=== PATIENT | male | born 1935 | race Caucasian/White ===

== ENCOUNTER → 2017-08-18 16:13 | Outpatient (REF) | payer MEDICARE, MEDICAID, SELFPAY ==
[2017-08-18 16:16] LABS: Bacteria Urine None Seen
[2017-08-18 16:27] LABS: Appearance Urine UA CLEAR; Bilirubin Urine UA NEGATIVE (NEGATIVE); Color Urine UA YELLOW; Glucose Urine UA NEGATIVE (Normal); Ketones Urine UA NEGATIVE (NEGATIVE); Leukocyte Esterase Urine UA NEGATIVE (NEGATIVE); Nitrite Urine UA Negative (Negative); Occult Blood Urine UA 2+ (Negative); Protein Urine UA TRACE (Negative); Specific Gravity Urine UA 1.025 (1.000-1.035); Urobilinogen Urine UA 0.2 E.U./dL (0.2)
[2017-08-18 16:33] LABS: RBC Urine 5-10/HPF (0-5/HPF); Squamous Epithelial Cell Urine None Seen; WBC Urine 0-1/HPF (0-5/HPF)
== END ==
LOC: LAB 16:13
PROVIDERS: Visit Provider Internal Medicine
DX: R41.0 Disorientation, unspecified (principal); R35.0 Frequency of micturition
CPT/HCPCS: 81001; 87086

== ENCOUNTER → 2017-11-25 16:19 | Outpatient (REF) | payer MEDICARE, MEDICAID, SELFPAY ==
[2017-11-25 16:22] LABS: Bacteria Urine None Seen; RBC Urine None Seen (0-5/HPF)
[2017-11-25 16:46] LABS: Appearance Urine UA CLEAR; Bilirubin Urine UA NEGATIVE (NEGATIVE); Color Urine UA YELLOW; Glucose Urine UA NEGATIVE (Normal); Ketones Urine UA NEGATIVE (NEGATIVE); Leukocyte Esterase Urine UA NEGATIVE (NEGATIVE); Nitrite Urine UA Negative (Negative); Occult Blood Urine UA TRACE-LYSED (Negative); Protein Urine UA NEGATIVE (Negative); Specific Gravity Urine UA 1.015 (1.000-1.035); Urobilinogen Urine UA 0.2 E.U./dL (0.2)
[2017-11-25 16:47] LABS: WBC Urine 1-5/HPF (0-5/HPF)
== END ==
LOC: LAB 16:19
PROVIDERS: Visit Provider Internal Medicine
DX: R35.0 Frequency of micturition (principal)
CPT/HCPCS: 81001

== ENCOUNTER 2018-01-01 13:00 | Day surgery (SDC) | payer MEDICARE, MEDICAID, SELFPAY ==
[2018-01-01] MEDS: PROPARACAINE 0.5% OPHTH SOL 2 DROPS EYE-OP (14:10)
[2018-01-01 14:16] VITALS: BP 128/93; PULSE 116; RESP 16; TEMP 36.6; O2SAT 98; BMI 27.3
[2018-01-01] MEDS: CATARACT EYE COMPOUND (10 DROPS/SYRINGE) 3 DROPS EYE-OP (14:33)
--- NOTE | 2018-01-01 14:33 | PM.PREOP ---
Pre-operative Note Interval Note Pre-op Check: Yes History & Physical Reviewed by Physician Changes: No
[2018-01-01] MEDS: TETRACAINE 0.5% OPHTH DROPS 15 ML 2 DROPS EYE-LEFT (15:06)
[2018-01-01] MEDS: MOXIFLOXACIN OPHTH DROPS 3 ML BOTTLE 2 DROPS INJ (15:07)
[2018-01-01] MEDS: BALANCED SALT IRRIG SOLN NO.2 500 ML, EPINEPHrine 1 MG IRR (15:08)
[2018-01-01] MEDS: PHENYLEPHRINE/LIDOCAINE VIAL (OR) 0.2 ML EYE-OP (15:08)
--- NOTE | 2018-01-01 15:33 | PM.OP.1 ---
Procedure & Clinicians Procedure: Cataract extraction with intraocular lens implant, left Same procedure as scheduled: Yes Indications: visually significant cataract Surgeon: Ruslan Espinal Anesthesia Type: MAC +/- Operative Notes Findings: The patient was brought to the operating suite. Tetracaine drops were placed in the left eye. The patient was prepped and draped in the typical sterile manner. A lid speculum was placed in the operative eye. A paracentesis port was created with a side-port blade. 0.1 mL of 1% preservative free lidocaine was injected into the anterior chamber. Viscoelastic was injected into the anterior chamber. A 2.6mm keratome was used to create a clear corneal temporal incision. Cystotome and Utrata forceps were used to create a continuous curvilinear capsulorrhexis. Balanced salt solution was used to hydrodissect the nucleus. Phacoemulsification was used to remove the lens. The capsular bag was inflated with viscoelastic. At this point a subincisional anterior capsular radialization was appreciated. This radializatoin did not extend to the posterior capsule. A Wang ZCBOO +20.2D lens was inserted into the capsule. Viscoelastic was removed and the lens was properly aligned and felt to be stable. The wound was hydrated. The wound was found to be leak free and the eye was assessed to be at normal physiologic pressure. 0.1mL Vigamox was injected into the anterior chamber. The posterior capsule was assessed again. No posterior radialization was appreciated. The lid speculum was removed and the patient left the operating room in excellent condition Complications: none Condition: stable Disposition: same day surgery
[2018-01-01 15:35] VITALS: BP 146/101; PULSE 118; RESP 16; TEMP 36.7; O2SAT 98
[2018-01-01 15:50] VITALS: BP 146/93; PULSE 118; RESP 18; O2SAT 97
--- NOTE | 2018-01-01 16:17 | SUR.PHASEII ---
Assumed care of pt at 1550 from Kashif Kaur RN did a set of vital signs and removed IV. Pt has a caregiveer and the caregiver states he is at his baseline. Pt pleasant and cooperative and denies pain and taking pO fluids with out difficulty. Eye patch intact.
== END 2018-01-01 16:00 ==
LOC: OR 13:04
PROVIDERS: Visit Provider Ophthalmology
DX: H25.22 Age-related cataract, morgagnian type, left eye (principal); I10 Essential (primary) hypertension
CPT/HCPCS: J0171; J2250; J3010

== ENCOUNTER 2018-01-29 13:17 | Day surgery (SDC) | payer MEDICARE, MEDICAID, SELFPAY | END 2018-01-29 14:45 | disposition home or self-care (01) | LOC: OR 13:18 | PROVIDERS: Visit Provider Ophthalmology ==

== ENCOUNTER 2018-02-26 12:31 | Day surgery (SDC) | payer MEDICARE, MEDICAID, SELFPAY ==
[2018-02-26] MEDS: PROPARACAINE 0.5% OPHTH SOL 2 DROPS EYE-OP (13:35)
[2018-02-26 13:39] VITALS: BP 114/80; PULSE 102; RESP 16; O2SAT 99
[2018-02-26] MEDS: CATARACT EYE COMPOUND (10 DROPS/SYRINGE) 3 DROPS EYE-OP ×3 (13:40→13:50)
[2018-02-26] MEDS: MOXIFLOXACIN OPHTH DROPS 3 ML BOTTLE 2 DROPS INJ (15:17)
[2018-02-26] MEDS: PHENYLEPHRINE/LIDOCAINE VIAL (OR) 0.2 ML EYE-OP (15:17)
[2018-02-26] MEDS: CHONDROIDTIN/SOD HYALURONATE 1.05 ML SYRINGE INTRAOCULA (15:17)
[2018-02-26] MEDS: TETRACAINE 0.5% OPHTH DROPS 15 ML 2 DROPS EYE-RIGHT (15:18)
[2018-02-26] MEDS: BALANCED SALT IRRIG SOLN NO.2 500 ML, EPINEPHrine 1 MG IRR (15:18)
[2018-02-26] MEDS: LIDOCAINE 2% INJ SDV 0.5 ML TOP (15:19)
--- NOTE | 2018-02-26 15:34 | SUR.PREOP ---
[id number] Eunice at [facility] reported that pt took Metoprolol today at 1024. Dr Cheatham notified.
--- NOTE | 2018-02-26 15:43 | PM.OP.1 ---
Procedure & Clinicians Procedure: cataract extraction with intraocular lens implant, right Same procedure as scheduled: Yes Indications: visually significant cataract, nuclear sclerosis Surgeon: Ruslan Espinal Anesthesia Type: MAC +/- Operative Notes Procedure in detail: The patient was brought to the operating suite. The correct patient, surgical site and lens were confirmed. 0.5 % tetracaine drops were placed in the right eye. The patient was prepped and draped in the typical sterile manner. A lid speculum was placed in the eye. A paracentesis was created with a side-port blade. 0.1 mL of 1% preservative free lidocaine with epinephrine was injected into the anterior chamber. Viscoelastic was injected into the anterior chamber. A 2.6mm keratome was used to create a clear corneal temporal incision. Cystotome and Utrata forceps were used to create a continuous curvilinear capsulorrhexis. Balanced salt solution was used to hydrodissect the nucleus. Phacoemulsification was used to remove the lens. The capsular bag was inflated with viscoelastic. A Wang ZBOO +19.5D lens was inserted into the capsule. Viscoelastic was removed and the wound hydrated. The wound was found to be leak free and the eye was assessed to be at normal physiologic pressure. 0.1mL Vigamox was injected into the anterior chamber. The lid speculum was removed and the patient left the operating room in excellent condition. Complications: none Condition: stable Disposition: same day surgery
[2018-02-26 15:45] VITALS: BP 121/89; PULSE 115; RESP 16; TEMP 36.7; O2SAT 94
== END 2018-02-26 16:05 | disposition home or self-care (01) ==
PROVIDERS: Visit Provider Ophthalmology
DX: H25.11 Age-related nuclear cataract, right eye (principal); I10 Essential (primary) hypertension
CPT/HCPCS: J0171; J2250; J3010

== ENCOUNTER → 2018-07-04 15:01 | Outpatient (REF) | payer MEDICARE, MEDICAID, SELFPAY ==
[2018-07-04 15:53] LABS: Clostridium Difficile Tox PCR Negative for C. diff
== END ==
LOC: LAB 15:01
PROVIDERS: Visit Provider Internal Medicine
DX: B96.89 Other specified bacterial agents as the cause of diseases classified elsewhere (principal)
CPT/HCPCS: 87493

== ENCOUNTER → 2019-11-17 16:52 | Outpatient (ROUT) | payer MEDICARE, MEDICAID, SELFPAY ==
[2019-11-17 16:54] LABS: Bacteria Urine None Seen; RBC Urine None Seen (0-5/HPF)
[2019-11-17 17:05] LABS: Appearance Urine UA CLEAR; Bilirubin Urine UA NEGATIVE (NEGATIVE); Color Urine UA YELLOW; Glucose Urine UA NEGATIVE (Negative); Ketones Urine UA NEGATIVE (NEGATIVE); Leukocyte Esterase Urine UA NEGATIVE (NEGATIVE); Nitrite Urine UA NEGATIVE (Negative); Occult Blood Urine UA NEGATIVE (Negative); Protein Urine UA NEGATIVE (Negative); Urobilinogen Urine UA 0.2 E.U./dL (0.2); pH Urine UA 6.5 (4.5-8.0)
[2019-11-17 17:25] LABS: Squamous Epithelial Cell Urine 0-1 /HPF (0-5/HPF); WBC Urine 0-1/HPF (0-5/HPF)
[2019-11-17 17:26] LABS: Culture Indicated Urine Cult Not Indicated
== END ==
PROVIDERS: Visit Provider Internal Medicine
DX: R30.0 Dysuria (principal); R41.0 Disorientation, unspecified
CPT/HCPCS: 81001

== ENCOUNTER 2020-04-13 09:34 | Emergency (ER) | payer MEDICARE, MEDICAID, SELFPAY ==
[2020-04-13] VITALS (15 sets, daily range): BP systolic 98–139; BP diastolic 54–89; PULSE 52–127; RESP 13–19; TEMP 37.1; O2SAT 94–99; BMI 25.8
--- NOTE | 2020-04-13 09:47 | ED_ITS ---
HPI - Arrhythmia/Palpitations General Chief Complaint: Arrhythmia/Palpitations Stated Complaint: Afib Time Seen by Provider: 04/13/20 09:35 Source: patient, EMS and other (Celeste PettyNarenBora) Mode of arrival: EMS Limitations: no limitations History of Present Illness HPI narrative: This is an 85-year-old gentleman who is brought to the emergency department for irregular elevated heart rate. Patient lives at [facility]. Um was contacted by the nurse practitioner who states that it was noted his heart rate was elevated today during checks. She states that appears to be irregular and she suspects he is in atrial fibrillation. Patient does not have any known prior history of atrial fibrillation. She states he was a metoprolol which was stopped a month ago secondary to low blood pressures. Patient himself is asymptomatic. He currently has no complaints, he denies any sensation of tachycardia or palpitations. He denies any chest pain, shortness of breath, no lightheadedness or dizziness. Denies any diaphoresis denies any nausea or vomiting. Denies any swelling in his extremities. He has a history of hypertension although now off medication, dyslipidemia and insomnia. He denies any prior surgical history. He states that he quit drinking in the last year. Denies any illicit. Related Data Home Medications Medication Instructions Recorded Confirmed acetaminophen [Tylenol] 650 mg PO Q4H PRN 01/01/18 01/21/18 metoprolol succinate 25 mg PO DAILY 01/01/18 02/26/18 mirtazapine 7.5 mg PO DAILY 01/01/18 01/21/18 quetiapine 25 mg PO DAILY 01/01/18 01/21/18 temazepam 30 mg PO BEDTIME 01/01/18 01/21/18 terazosin 2 mg PO BEDTIME 01/01/18 01/21/18 Allergies Allergy/AdvReac Type Severity Reaction Status Date / Time No Known Drug Allergies Allergy Verified 04/13/20 09:45 Review of Systems Review of Systems ROS Unobtainable: All systems reviewed & are unremarkable except as noted in HPI and below Patient History Medical History (Updated 04/13/20 @ 09:59 by Olivia Gamez DO) Dyslipidemia Hypertension Insomnia Social History household members: caregiver Smoking Status: Former smoker Smoking Status: Former smoker alcohol intake frequency: other (Former ETOH) Substance Use Type: does not use Exam Narrative Exam Narrative: GENERAL: Alert and oriented x three elderly male in mild distres s. Patient is somewhat hard of hearing. HEENT: Head normocephalic, atraumatic, EOMI, pupils reactive, face symmetric, moist mucous membranes NECK: Supple, full range of motion CARDIOVASCULAR: Irregularly irregular and tachycardic rate and rhythm without murmurs, rubs or gallops. No JVD. No swelling bilateral lower extremities. RESPIRATORY: Breath sounds equal bilaterally, no wheezes rales or rhonchi. No tachypnea, no accessory muscle use. ABDOMEN: Soft, nontender. Normoactive bowel sounds all 4 quadrants. No guarding or rebound, rigidity, no mass : No CVA tenderness EXTREMITIES: Normal range of motion, no clubbing or edema. Neurovascularly intact NEUROLOGICAL: Cranial nerves II through XII grossly intact. Moving all extremities SKIN: Warm, dry, no petechiae, no rashes or lesions. Initial Vital Signs Initial Vital Signs: Vital Signs Temperature 98.7 F 04/13/20 09:35 Pulse Rate 125 H 04/13/20 09:35 Respiratory Rate 16 04/13/20 09:35 Blood Pressure 139/89 04/13/20 09:35 Pulse Oximetry 97 04/13/20 09:35 Scores CHADS-VASc Congestive heart failure: no Hypertension: no (patient had htn in past.) Age 75 years or older: yes Diabetes mellitus: no Stroke, TIA, or TE: no Vascular disease: no Age 65 to 74 years: no Sex category (female): Male CHADS-VASc Score: 2 Course Orders Ordered: ED Orders 04/13/20 09:48 XR chest 1V Stat EKG-12 Lead Stat 04/13/20 09:56 Complete Blood Count AUTO DIFF Stat Comprehensive Metabolic Panel Stat D Dimer Stat Magnesium Stat Partial Thromboplastin Time Stat Prothrombin Time INR Stat Thyroid Stimulating Hormone Stat Troponin & CK Cardiac Panel Stat Discontinued Medications Aspirin (Aspirin 81 Mg Chew Tab) 324 mg PO NOW ONE Stop: 04/13/20 11:13 Last Admin: 04/13/20 11:24 Dose: 324 mg Documented by: ARELI Diltiazem HCl (Diltiazem 5 Mg/Ml Sdv) 20 mg IV NOW ONE Stop: 04/13/20 09:55 Last Admin: 04/13/20 09:54 Dose: 10 mg Documented by: ARELI Sodium Chloride (Normal Saline 0.9%) 1,000 mls @ 1,000 mls/hr IV BOLUS ONE Stop: 04/13/20 10:46 Last Infusion: 04/13/20 11:21 Dose: 0 mls/hr Documented by: Admin: 04/13/20 09:55 Dose: 1,000 mls/hr Documented by: ARELI DILTIAZEM (Diltiazem 125 Mg/125 Ml-D5w) 125 mg in 125 mls @ 5 mls/hr IV TITRATE AMY; Protocol Last Admin: 04/13/20 10:11 Dose: Not Given Documented by: ARELI Metoprolol Tartrate (Metoprolol Ir 25 Mg Tablet) 25 mg PO NOW ONE Stop: 04/13/20 10:11 Last Admin: 04/13/20 10:38 Dose: 25 mg Documented by: ARELI Reevaluation(s) Reevaluation #1: Patient appears to have cardioverted after 10mg diltiazem in ED. Repeat ekg. Time: 10:09 Reevaluation #2: Patient improved continued to be in sinus rhythm we reviewed patient's labs and findings and discussed plan with his nurse practitioner. Patient feels comfortable with this plan. Patient feels comfortable returning at this time and we reviewed several questions the patient had. Time: 11:17 Consultations Consultation #1: Spoke with UNDERGROUND TRUCK OPERATOR Celeste Diane. We discussed patient's chads Vasc score is between 2 and 3 depending on if you include his prior history of hypertension which he is no longer. Plan today to start with him with a full- dose aspirin, they will further evaluate decide if they feel it is appropriate to advance his anticoagulation. They are going to discuss with the group home staff to see his fall risk. Patient labs do not show any major abnormalities other than renal function. I discussed this with the nurse practitioner. We did discuss whether to start some metoprolol the department and he has had hypotensive issues in the past so she asked that we hold and they will restart if that feels appropriate. They will follow with the patient and arrange cardiology consultation as needed. Patient has continued to be little bit hypotensive after the 2nd dose of diltiazem but is continuing to improve. Time: 11:10 Vital Signs Vital signs: Vital Signs - 8 hr 04/13/20 09:35 04/13/20 09:40 04/13/20 09:54 Temperature 98.7 F Pulse Rate 125 H 125 H 125 H Respiratory Rate 16 18 Blood Pressure 139/89 Pulse Oximetry 97 97 04/13/20 10:00 04/13/20 10:09 04/13/20 10:30 Temperature Pulse Rate 127 H 60 57 L Respiratory Rate 16 15 15 Blood Pressure 98/54 L 111/57 L Pulse Oximetry 94 94 95 04/13/20 10:45 04/13/20 11:00 04/13/20 11:15 Temperature Pulse Rate 57 L 60 58 L Respiratory Rate 13 15 14 Blood Pressure 109/55 L 127/58 L 117/60 Pulse Oximetry 96 96 97 04/13/20 11:30 04/13/20 11:45 04/13/20 12:00 Temperature Pulse Rate 57 L 66 75 Respiratory Rate 19 14 15 Blood Pressure 117/60 124/60 Pulse Oximetry 98 99 99 04/13/20 12:01 04/13/20 12:15 04/13/20 12:25 Temperature Pulse Rate 99 H 52 L 52 L Respiratory Rate 15 15 14 Blood Pressure 107/62 126/65 126/65 Pulse Oximetry 99 99 99 MDM - Arrhythmia/Palpitations Lab Data Result diagrams: 04/13/20 09:56 04/13/20 09:56 Labs: Lab Results 04/13/20 04/13/20 04/13/20 Range/Units 09:56 09:56 09:56 WBC 6.7 (4.5-11.0) X10^3/uL RBC 4.95 (4.5-5.9) X10^6/uL Hgb 15.6 (13.5-17.5) g/dL Hct 46.6 (41-53) % MCV 94.0 (80-100) fL MCH 31.5 (26-34) PG MCHC 33.5 (30-36) % RDW 13.4 (11.6-14.8) % Plt Count 248 (150-400) X10^3/uL Neut % (Auto) 52.2 (50-75) % Lymph % (Auto) 28.7 (25-40) % Duchesne % (Auto) 12.2 (3-14) % Eos % (Auto) 6.0 H (2-4) % Baso % (Auto) 0.9 (0-2) % Neut # (Auto) 3500 (9173-4243) /uL Lymph # (Auto) 1900 (7841-1218) /uL Duchesne # (Auto) 800 (0-900) /uL Eos # (Auto) 400 (0-450) /uL Baso # (Auto) 100 (0-100) /uL PT 11.9 (10.1-12.7) SECONDS INR 1.0 (0.9-1.3) APTT 30 (26.4-36.2) SECONDS D-Dimer 227 (<230) ng/mL Sodium 142 (137-145) mmol/L Potassium 4.0 (3.4-5.1) mmol/L Chloride 107 (98-107) mmol/L Carbon Dioxide 29 (22-32) mmol/L BUN 29 H (9-20) mg/dL Creatinine 1.53 H (0.66-1.25) mg/dL Estimated GFR 43.4 L (>60) mL/min BUN/Creatinine Ratio 19.0 (6-22) Glucose 97 (80-110) mg/dL Calcium 9.0 (8.4-10.2) mg/dL Magnesium (1.6-2.3) mg/dL Total Bilirubin 1.0 (0.2-1.3) mg/dL AST 20 (17-59) IU/L ALT 11 (<50) IU/L Alkaline Phosphatase 65 (38-126) U/L Total Creatine Kinase (55-170) U/L CK-MB (CK-2) CK-MB (CK-2) Rel Index Troponin I (0.01-0.034) ng/mL Total Protein 7.8 (6.3-8.2) g/dL Albumin 4.3 (3.5-5.0) g/dL Globulin 3.5 (1.7-4.1) g/dL Albumin/Globulin Ratio 1.2 (1.0-2.8) TSH (0.47-4.68) uIU/mL 04/13/20 04/13/20 Range/Units 09:56 09:56 WBC (4.5-11.0) X10^3/uL RBC (4.5-5.9) X10^6/uL Hgb (13.5-17.5) g/dL Hct (41-53) % MCV (80-100) fL MCH (26-34) PG MCHC (30-36) % RDW (11.6-14.8) % Plt Count (150-400) X10^3/uL Neut % (Auto) (50-75) % Lymph % (Auto) (25-40) % Duchesne % (Auto) (3-14) % Eos % (Auto) (2-4) % Baso % (Auto) (0-2) % Neut # (Auto) (8147-9142) /uL Lymph # (Auto) (4786-1966) /uL Duchesne # (Auto) (0-900) /uL Eos # (Auto) (0-450) /uL Baso # (Auto) (0-100) /uL PT (10.1-12.7) SECONDS INR (0.9-1.3) APTT (26.4-36.2) SECONDS D-Dimer (<230) ng/mL Sodium (137-145) mmol/L Potassium (3.4-5.1) mmol/L Chloride (98-107) mmol/L Carbon Dioxide (22-32) mmol/L BUN (9-20) mg/dL Creatinine (0.66-1.25) mg/dL Estimated GFR (>60) mL/min BUN/Creatinine Ratio (6-22) Glucose (80-110) mg/dL Calcium (8.4-10.2) mg/dL Magnesium 2.2 (1.6-2.3) mg/dL Total Bilirubin (0.2-1.3) mg/dL AST (17-59) IU/L ALT (<50) IU/L Alkaline Phosphatase (38-126) U/L Total Creatine Kinase 52 L (55-170) U/L CK-MB (CK-2) TNP CK-MB (CK-2) Rel Index TNP Troponin I < 0.012 (0.01-0.034) ng/mL Total Protein (6.3-8.2) g/dL Albumin (3.5-5.0) g/dL Globulin (1.7-4.1) g/dL Albumin/Globulin Ratio (1.0-2.8) TSH 4.50 (0.47-4.68) uIU/mL Urine Dip Bedside Urine Glucose Negative Bedside Urine Bilirubin - Negative Bedside Urine Ketone - Negative Urine Specific Lithia 1.025 Bedside Urine Occult Blood - Negative Bedside Urine pH 6.0 Bedside Urine Protein - Negative Bedside Urine Urobilinogen - Negative Bedside Urine Nitrite - Negative Bedside Urine Leukocytes - Negative Esterase Imaging Data Chest x-ray: Radiologist's Impresson: [address] [id number] ReportSigned Patient: Sheldon ManriquezMR#: [id number]: 5Acct:[id number]/Sex: 85 / MDate of Service: 04/13/20Loc: EDAccession Number: [id number] Procedure: XR chest 1V Ordering Provider: Olivia Gamez D.O. PROCEDURE: XR CHEST 1V INDICATIONS: Dysrhythmia TECHNIQUE: One view of the chest was acquired. COMPARISON: None. FINDINGS: Surgical changes and devices: None. Lungs and pleura: Lungs are clear. No pleural effusions or pneumothorax. Mediastinum: Mediastinal contours appear normal. Heart size is normal. Bones and chest wall: Chronic appearing left rib fracture deformity. IMPRESSION: No acute disease. Dictated by: Corwin Sibley M.D. on 04/13/2020 at 10:02 Approved by: Corwin Sibley M.D. on 04/13/2020 at 10:03 ECG Data Attestation: I personally reviewed and interpreted this ECG as follows: Interpretation: Atrial tachycardia rate of 120 work, P are 200, QRS of 92 and QTC of 375. Patient has very able intermittent P-waves but QRS does appear to be regular. No prior EKGs available. Nonspecific ST change, left anterior fascicular block. Q-wave in [address] elevation is appreciated. EKG 2 shows normal sinus rhythm with sinus arrhythmia. Rate of 60, SD interval 150, QRS 84 and QTC of 400. Nonspecific change. No elevation appreciated. As we with inverted T in lead 3 and Q-wave in AVF. MDM Narrative Medical decision making narrative: This is an 85-year-old male comes to the emergency department with elevated heart rate which appears to be an atrial tachycardia. Patient received 20 mg of diltiazem in the field, patient's heart rate was 170 per EMS and improved to 120 here. Patient received additional 10 mg and cardioverted in the department. Patient does not have a known history of atrial fibrillation. He was on metoprolol until approximately a month ago for hypertension. Patient's labs show elevated creatinine although unclear if this is his baseline. Otherwise no major electrolyte abnormalities, troponin is negative with normal hematocrit hemoglobin. Patient has a negative D-dimer. With no acute changes. Patient was hypotensive initially after diltiazem so oral metoprolol was held. Patient was given a full-dose aspirin here in the department, discussed with his nurse practitioner at the care facility they will evaluate a little bit further to see appropriateness for advancing anticoagu lation as he has a history of falling in the past when he was actively drinking. She is going to discuss with staff to see if he continues to have high fall risk. She also asked that we hold his metoprolol which he continue to do so as his blood pressure slowly improving and they will restart this as needed at the facility as well as facilitate cardiology follow-up as needed. Patient was able to ambulate from the department to his ride. Discharge Plan Departure Patient Disposition: Home Clinical Impression: Atrial tachycardia Instructions: Paroxysmal Supraventricular Tachycardia Activity Restrictions/Additional Instructions: Follow-up with your physician or Cardiology in the next week. I did speak with your UNDERGROUND TRUCK OPERATOR Celeste Diane and she is going to help facilitate your care. Take a full dose aspirin daily. Discussed with your provider about potentially increasing your anticoagulation to decrease your stroke risk. They can discuss the risk versus benefits to help you come to a decision. Discussed with her physician your renal function was decreased today it is unclear if this is at your normal baseline or if this is a new change to your labs. Return to the ER for fevers, recurrent tachycardia, new chest pain, shortness of breath, lightheadedness or passing out, persistent vomiting, black or bloody stools, swelling in her extremities or other new or concerning symptoms. Prescriptions: No Action quetiapine 25 mg Tablet 25 mg PO DAILY RF: 0 terazosin 2 mg Capsule 2 mg PO BEDTIME RF: 0 temazepam 30 mg Capsule 30 mg PO BEDTIME RF: 0 mirtazapine 7.5 mg Tablet 7.5 mg PO DAILY RF: 0 acetaminophen [Tylenol] 325 mg Capsule 650 mg PO Q4H PRN (Reason: Pain (Scale Score 1-3)) RF: 0 metoprolol succinate 25 mg Cap,Sprinkle,Er 24hr Dose Pack 25 mg PO DAILY RF: 0 Referrals: Epi Willis MD [Physician] -
[2020-04-13] MEDS: dilTIAZem 5 MG/ML SDV 20 MG IV (09:54)
[2020-04-13] MEDS: SODIUM CHLORIDE 0.9% 1,000 ML 1000 ML IV (09:55)
[2020-04-13 10:01] LABS: Add Manual Diff / Slide Review NO; Basophils Absolute Auto 100 /uL (0-100); Basophils Percent Auto 0.9 % (0-2); Eosinophils Absolute Auto 400 /uL (0-450); Hematocrit 46.6 % (41-53); Hemoglobin 15.6 g/dL (13.5-17.5); Lymphocytes Absolute Auto 1900 /uL (1100-4500); Lymphocytes Percent Auto 28.7 % (25-40); Mean Corpuscular HGB Conc 33.5 % (30-36); Mean Corpuscular Hemoglobin 31.5 PG (26-34); Monocytes Absolute Auto 800 /uL (0-900); Monocytes Percent Auto 12.2 % (3-14); Neutrophils Absolute Auto 3500 /uL (1500-7000); Neutrophils Percent Auto 52.2 % (50-75); Platelet Count 248 X10^3/uL (150-400); Red Blood Cell Count 4.95 X10^6/uL (4.5-5.9); Red Cell Distribution Width 13.4 % (11.6-14.8); White Blood Cell Count 6.7 X10^3/uL (4.5-11.0)
[2020-04-13 10:05] LABS: Prothrombin Time 11.9 SECONDS (10.1-12.7)
[2020-04-13 10:08] LABS: D Dimer 227 ng/mL (<230); PTT Partial Thromboplastin Tim 30 SECONDS (26.4-36.2)
[2020-04-13 10:09] LABS: Alanine Aminotransferase 11 IU/L (<50); Albumin 4.3 g/dL (3.5-5.0); Albumin Globulin Ratio 1.2 (1.0-2.8); Alkaline Phosphatase 65 U/L (38-126); Aspartate Aminotransferase 20 IU/L (17-59); Blood Urea Nitrogen 29 mg/dL (9-20); Carbon Dioxide 29 mmol/L (22-32); Chloride 107 mmol/L (98-107); Estimated Glomerular Filt Rate 43.4 mL/min (>60); Globulin 3.5 g/dL (1.7-4.1); Glucose 97 mg/dL (80-110); HEMOLYSIS < 15 (0-50); Sodium 142 mmol/L (137-145); Total Protein 7.8 g/dL (6.3-8.2)
[2020-04-13 10:10] LABS: Creatine Kinase 52 U/L (55-170); Magnesium 2.2 mg/dL (1.6-2.3)
[2020-04-13 10:20] LABS: Troponin I < 0.012 ng/mL (0.01-0.034)
[2020-04-13] MEDS: METOPROLOL IR 25 MG TABLET PO (10:38)
[2020-04-13] MEDS: ASPIRIN 81 MG CHEW TAB 324 MG PO (11:24)
== END 2020-04-13 12:28 | disposition home or self-care (01) ==
PROVIDERS: Emergency Provider Emergency Medicine
DX: I47.1 Supraventricular tachycardia (principal); I10 Essential (primary) hypertension; E78.5 Hyperlipidemia, unspecified
CPT/HCPCS: 71045; 80053; 81003; 82550; 83735; 84443; 84484; 85025; 85379; 85610; 85730; 93005; 96361; 96374; 99283; 99284

== ENCOUNTER → 2020-05-09 07:41 | Outpatient (ROUT) | payer MEDICARE, MEDICAID, SELFPAY ==
[2020-05-09 08:06] LABS: BUN Creatinine Ratio 20.5 (6-22); Blood Urea Nitrogen 26 mg/dL (9-20); Calcium 8.6 mg/dL (8.4-10.2); Carbon Dioxide 28 mmol/L (22-32); Chloride 107 mmol/L (98-107); Estimated Glomerular Filt Rate 53.8 mL/min (>60); Glucose 92 mg/dL (80-110); HEMOLYSIS < 15 (0-50); Potassium 3.9 mmol/L (3.4-5.1); Sodium 137 mmol/L (137-145)
== END ==
PROVIDERS: Visit Provider Internal Medicine
DX: N17.9 Acute kidney failure, unspecified (principal)
CPT/HCPCS: 36415; 80048

== ENCOUNTER → 2020-06-05 20:17 | Outpatient (ROUT) | payer MEDICARE, MEDICAID, SELFPAY ==
[2020-06-05 20:19] LABS: Bacteria Urine None Seen; RBC Urine None Seen (0-5/HPF)
[2020-06-05 20:41] LABS: Appearance Urine UA CLEAR; Bilirubin Urine UA NEGATIVE (NEGATIVE); Color Urine UA YELLOW; Glucose Urine UA NEGATIVE (Negative); Ketones Urine UA NEGATIVE (NEGATIVE); Leukocyte Esterase Urine UA NEGATIVE (NEGATIVE); Nitrite Urine UA NEGATIVE (Negative); Occult Blood Urine UA NEGATIVE (Negative); Protein Urine UA NEGATIVE (Negative); Urobilinogen Urine UA 0.2 E.U./dL (0.2); pH Urine UA 6.5 (4.5-8.0)
[2020-06-05 21:00] LABS: Culture Indicated Urine Cult Not Indicated; Squamous Epithelial Cell Urine 0-1 /HPF (0-5/HPF); WBC Urine 0-1/HPF (0-5/HPF)
== END ==
PROVIDERS: Visit Provider Nurse Practitioner Gerontology
DX: R35.0 Frequency of micturition (principal); R39.15 Urgency of urination; R30.0 Dysuria
CPT/HCPCS: 81001

== ENCOUNTER → 2020-07-04 08:05 | Outpatient (ROUT) | payer MEDICARE, MEDICAID, SELFPAY ==
[2020-07-04 09:39] LABS: Blood Urea Nitrogen 26 mg/dL (9-20); Calcium 8.7 mg/dL (8.4-10.2); Carbon Dioxide 28 mmol/L (22-32); Chloride 107 mmol/L (98-107); Estimated Glomerular Filt Rate 49.3 mL/min (>60); Glucose 82 mg/dL (80-110); HEMOLYSIS < 15 (0-50); Potassium 4.1 mmol/L (3.4-5.1); Sodium 140 mmol/L (137-145)
== END ==
PROVIDERS: Visit Provider Nurse Practitioner Family
DX: N17.9 Acute kidney failure, unspecified (principal)
CPT/HCPCS: 36415; 80048

== ENCOUNTER → 2020-08-22 07:58 | Outpatient (ROUT) | payer MEDICARE, MEDICAID, SELFPAY ==
[2020-08-22 09:36] LABS: Prostate Specific Antigen 0.867 ng/mL (0.10-4.00)
== END ==
PROVIDERS: Visit Provider Nurse Practitioner Gerontology
DX: R32 Unspecified urinary incontinence (principal)
CPT/HCPCS: 36415; 84153

== ENCOUNTER → 2020-08-29 07:49 | Outpatient (ROUT) | payer MEDICARE, MEDICAID, SELFPAY ==
[2020-08-29 08:58] LABS: BUN Creatinine Ratio 19.6 (6-22); Blood Urea Nitrogen 28 mg/dL (9-20); Calcium 9.2 mg/dL (8.4-10.2); Carbon Dioxide 23 mmol/L (22-32); Chloride 107 mmol/L (98-107); Estimated Glomerular Filt Rate 46.9 mL/min (>60); Glucose 98 mg/dL (80-110); HEMOLYSIS < 15 (0-50); Potassium 4.1 mmol/L (3.4-5.1); Sodium 139 mmol/L (137-145)
== END ==
PROVIDERS: Visit Provider Nurse Practitioner Family
DX: N18.9 Chronic kidney disease, unspecified (principal)
CPT/HCPCS: 36415; 80048

== ENCOUNTER → 2020-09-26 08:01 | Outpatient (ROUT) | payer MEDICARE, MEDICAID, SELFPAY ==
[2020-09-26 09:47] LABS: BUN Creatinine Ratio 18.4 (6-22); Blood Urea Nitrogen 23 mg/dL (9-20); Calcium 8.5 mg/dL (8.4-10.2); Carbon Dioxide 28 mmol/L (22-32); Chloride 105 mmol/L (98-107); Estimated Glomerular Filt Rate 54.8 mL/min (>60); Glucose 78 mg/dL (80-110); HEMOLYSIS < 15 (0-50); Potassium 4.1 mmol/L (3.4-5.1); Sodium 138 mmol/L (137-145)
== END ==
PROVIDERS: Visit Provider Nurse Practitioner Family
DX: I63.9 Cerebral infarction, unspecified (principal); Z79.899 Other long term (current) drug therapy; R31.9 Hematuria, unspecified
CPT/HCPCS: 36415; 80048

== ENCOUNTER → 2020-10-24 07:59 | Outpatient (ROUT) | payer MEDICARE, MEDICAID, SELFPAY ==
[2020-10-24 09:09] LABS: BUN Creatinine Ratio 27.9 (6-22); Blood Urea Nitrogen 36 mg/dL (9-20); Calcium 8.5 mg/dL (8.4-10.2); Carbon Dioxide 29 mmol/L (22-32); Chloride 107 mmol/L (98-107); Estimated Glomerular Filt Rate 52.8 mL/min (>60); Glucose 87 mg/dL (80-110); HEMOLYSIS < 15 (0-50); Potassium 4.4 mmol/L (3.4-5.1); Sodium 141 mmol/L (137-145)
== END ==
PROVIDERS: Visit Provider Nurse Practitioner Family
DX: N18.9 Chronic kidney disease, unspecified (principal)
CPT/HCPCS: 36415; 80048

== ENCOUNTER → 2020-10-26 17:17 | Outpatient (ROUT) | payer MEDICARE, MEDICAID, SELFPAY ==
[2020-10-26 17:27] LABS: Appearance Urine UA CLEAR; Bilirubin Urine UA NEGATIVE (NEGATIVE); Color Urine UA YELLOW; Glucose Urine UA NEGATIVE (Negative); Ketones Urine UA NEGATIVE (NEGATIVE); Leukocyte Esterase Urine UA NEGATIVE (NEGATIVE); Nitrite Urine UA NEGATIVE (Negative); Occult Blood Urine UA TRACE-LYSED (Negative); Protein Urine UA NEGATIVE (Negative); Urobilinogen Urine UA 0.2 E.U./dL (0.2); pH Urine UA 5.5 (4.5-8.0)
[2020-10-26 18:23] LABS: Bacteria Urine Few (2-10); Culture Indicated Urine Cult Not Indicated; RBC Urine 0-1/HPF (0-5/HPF); WBC Urine 1-5/HPF (0-5/HPF)
== END ==
PROVIDERS: Visit Provider Nurse Practitioner Family
DX: R39.15 Urgency of urination (principal); R32 Unspecified urinary incontinence
CPT/HCPCS: 81001

== ENCOUNTER → 2021-04-18 12:08 | Outpatient (ROUT) | payer MEDICARE, MEDICAID, SELFPAY ==
[2021-04-18 12:22] LABS: Add Manual Diff / Slide Review NO; Basophils Absolute Auto 100 /uL (0-100); Eosinophils Absolute Auto 200 /uL (0-450); Eosinophils Percent Auto 3.2 % (2-4); Hematocrit 40.2 % (41-53); Hemoglobin 13.8 g/dL (13.5-17.5); Lymphocytes Absolute Auto 1100 /uL (1100-4500); Lymphocytes Percent Auto 14.8 % (25-40); Mean Corpuscular HGB Conc 34.4 % (30-36); Mean Corpuscular Hemoglobin 31.9 PG (26-34); Mean Corpuscular Volume 92.6 fL (80-100); Monocytes Absolute Auto 900 /uL (0-900); Monocytes Percent Auto 12.2 % (3-14); Neutrophils Absolute Auto 5100 /uL (1500-7000); Neutrophils Percent Auto 68.8 % (50-75); Platelet Count 238 X10^3/uL (150-400); Red Blood Cell Count 4.34 X10^6/uL (4.5-5.9); Red Cell Distribution Width 14.5 % (11.6-14.8); White Blood Cell Count 7.5 X10^3/uL (4.5-11.0)
[2021-04-18 12:37] LABS: Appearance Urine UA CLOUDY; Bilirubin Urine UA NEGATIVE (NEGATIVE); Color Urine UA RED; Glucose Urine UA NEGATIVE (Negative); Ketones Urine UA TRACE (NEGATIVE); Leukocyte Esterase Urine UA TRACE (NEGATIVE); Nitrite Urine UA POSITIVE (Negative); Occult Blood Urine UA 3+ (Negative); Protein Urine UA 2+ (Negative)
[2021-04-18 13:24] LABS: Alanine Aminotransferase 16 IU/L (<50); Albumin 4.3 g/dL (3.5-5.0); Albumin Globulin Ratio 1.3 (1.0-2.8); Alkaline Phosphatase 56 U/L (38-126); Aspartate Aminotransferase 24 IU/L (17-59); BUN Creatinine Ratio 19.8 (6-22); Bilirubin Total 0.9 mg/dL (0.2-1.3); Blood Urea Nitrogen 37 mg/dL (9-20); Calcium 9.4 mg/dL (8.4-10.2); Carbon Dioxide 22 mmol/L (22-32); Chloride 110 mmol/L (98-107); Estimated Glomerular Filt Rate 34.3 mL/min (>60); Globulin 3.2 g/dL (1.7-4.1); Glucose 99 mg/dL (80-110); HEMOLYSIS < 15 (0-50); Potassium 4.6 mmol/L (3.4-5.1); Sodium 141 mmol/L (137-145); Total Protein 7.5 g/dL (6.3-8.2)
[2021-04-18 14:04] LABS: Bacteria Urine Many (>30); Culture Indicated Urine Specimen Cultured; RBC Urine >100/HPF (0-5/HPF); WBC Urine 5-10/HPF (0-5/HPF)
== END ==
PROVIDERS: Visit Provider Nurse Practitioner Gerontology
DX: R41.0 Disorientation, unspecified (principal)
CPT/HCPCS: 80053; 81001; 85025; 87086

== ENCOUNTER 2021-06-26 15:42 | Emergency (ER) | payer MEDICARE, MEDICAID, SELFPAY ==
--- NOTE | 2021-06-26 15:43 | DI.RAD.S_ITS ---
PROCEDURE: XR CHEST 1V INDICATIONS: fall, trauma, preop TECHNIQUE: One view of the chest was acquired. COMPARISON: [facility], CR, XR CHEST 1V, 04/13/2020, 9:52. FINDINGS: Surgical changes and devices: None. Lungs and pleura: Lung volumes are low. There is vascular crowding. No acute airspace opacities. No pleural effusion or pneumothorax. Mediastinum: The heart is enlarged. Bones and chest wall: No suspicious bony lesions. Overlying soft tissues appear unremarkable. IMPRESSION: Low lung volumes and cardiomegaly. Dictated by: Sophie Mcneill M.D. on 06/26/2021 at 16:27 Approved by: Sophie Mcneill M.D. on 06/26/2021 at 16:27
--- NOTE | 2021-06-26 15:43 | DI.CT.S_ITS ---
PROCEDURE: CT HEAD/BRAIN WO CON INDICATIONS: altered, multiple falls TECHNIQUE: Noncontrast 4.5 mm thick angled axial sections acquired from the foramen magnum to the vertex, with coronal and sagittal reformats. For radiation dose reduction, the following was used: automated exposure control, adjustment of mA and/or kV according to patient size. COMPARISON: None. FINDINGS: Image quality: Excellent. CSF spaces: Basal cisterns are patent. No extra-axial fluid collections. The ventricles are symmetric in size and shape. Brain: No intracranial bleeds or masses. Punctate calcification is present within the left caudate. There is marked cerebral volume loss for age, with resultant ventricular and sulcal prominence. There are periventricular and deep white matter chronic small vessel ischemic changes. There is intracranial internal carotid artery atherosclerosis. Skull and face: Calvarium and visualized facial bones appear intact, without suspicious lesions. Sinuses: Visualized sinuses and mastoids are clear. IMPRESSION: 1. No acute intracranial findings. 2. Extensive findings likely associated with chronic microvascular ischemic change. Dictated by: Sophie Mcneill M.D. on 06/26/2021 at 16:27 Approved by: Sophie Mcneill M.D. on 06/26/2021 at 16:29
[2021-06-26 15:45] VITALS: BP 181/77; PULSE 60; RESP 16; TEMP 36.7; O2SAT 98; BMI 24.3
--- NOTE | 2021-06-26 15:45 | ED.AMS ---
HPI - Altered Mental Status General Chief Complaint: Fall Stated Complaint: falls, AMS??? Time Seen by Provider: 06/26/21 16:00 History of Present Illness HPI narrative: 86-year-old former smoker with dementia and history of atrial tachyarrhythmias presents from a local [place] [facility] facility for evaluation. He has largely been in his normal state of health and has suffered 2 unwitnessed falls in the past 2 days. He denies any complaints states he feels at his normal baseline. He denies any injury as a consequence of the fall. Staff state that he appears at his baseline, however the family member is concerned that perhaps he is acting a bit more confused than normal. He was sent here for evaluation. There is no report of fever chills nor chest pain, shortness of breath or cough. He has had no nausea, vomiting or diarrhea. There is no report of change in medications or diet. Related Data Home Medications Medication Instructions Recorded Confirmed acetaminophen 325 mg capsule 650 mg PO Q4H PRN 01/01/18 01/21/18 (Tylenol) metoprolol succinate 25 mg capsule 25 mg PO DAILY 01/01/18 02/26/18 sprinkle, ext. release 24 hr mirtazapine 7.5 mg tablet 7.5 mg PO DAILY 01/01/18 01/21/18 quetiapine 25 mg tablet 25 mg PO DAILY 01/01/18 01/21/18 temazepam 30 mg capsule 30 mg PO BEDTIME 01/01/18 01/21/18 terazosin 2 mg capsule 2 mg PO BEDTIME 01/01/18 01/21/18 Allergies Allergy/AdvReac Type Severity Reaction Status Date / Time No Known Drug Allergies Allergy Verified 06/26/21 15:49 Review of Systems Review of Systems Narrative: GENERAL: Denies chills, fatigue, malaise, fever, sweats. HEENT: Denies sinus pain, ear pain, sore throat, difficulty swallowing, dizziness. RESPIRATORY: Denies dyspnea, cough, wheezing, hemoptysis, sputum. CARDIOVASCULAR: Denies chest pain, palpitations, orthopnea, edema, GASTROINTESTINAL: Denies nausea, vomiting, abdominal pain, diarrhea, constipation, melena. : Denies dysuria, frequency, incontinence, hematuria, urinary retention. MUSCULOSKELETAL: denies weakness, joint pain, or bony pain SKIN: Denies rash, skin lesions, or other NEUROLOGIC: See HPI PSYCHIATRIC: No concerning psychosocial issues. 12 point review of systems is negative except for those stated above Patient History Medical History Dyslipidemia Hypertension Insomnia Social History household members: caregiver Smoking Status: Former smoker Smoking Status: Former smoker alcohol intake frequency: other (Former ETOH) Alcohol type: beer Substance Use Type: does not use Exam Narrative Exam Narrative: GENERAL: 86] year old patient appears stated age. Well-developed patient, in mild distress. Pleasantly confused, GCS 14 HEAD: Atraumatic. Normocephalic. No abrasion or contusion nor evidence of depressed skull fracture EYES: Pupils equal round and reactive. Extraocular motions intact. No scleral icterus. No injection or drainage. ENT: Nose without bleeding, purulent drainage. Throat without erythema, tonsillar hypertrophy or exudate. Airway patent. NECK: Trachea midline. Non tender CARDIOVASCULAR: Regular rate and rhythm without murmurs, gallops, or rubs. RESPIRATORY: Clear to auscultation. Breath sounds equal bilaterally. No wheezes, rales, or rhonchi. GASTROINTESTINAL: Abdomen soft, non-tender, nondistended. EXTREMITIES: No edema or joint tenderness. BACK: Nontender without deformity or crepitance. No flank tenderness. NEURO: Cranial nerves 2-12 are grossly intact SKIN: No rash or erythema of visible areas Initial Vital Signs Initial Vital Signs: Vital Signs Temperature 98.0 F 06/26/21 15:45 Pulse Rate 60 06/26/21 15:45 Respiratory Rate 16 06/26/21 15:45 Blood Pressure 181/77 H 06/26/21 15:45 Pulse Oximetry 98 06/26/21 15:45 Course Orders Ordered: ED Orders 06/26/21 15:35 Complete Blood Count AUTO DIFF Stat Comprehensive Metabolic Panel Stat Lactate (Lactic Acid) Stat Magnesium Stat NT-proBNP (BNP-Adult 18+) Stat Troponin & CK Cardiac Panel Stat 06/26/21 15:43 CT head/brain wo con Stat XR chest 1V Stat EKG-12 Lead Stat 06/26/21 15:57 COVID19 -Nasal RAPID/Pre-Proc Stat 06/26/21 16:33 Blood Culture Stat Discontinued Medications Sodium Chloride (Normal Saline 0.9%) 1,000 mls @ 1,000 mls/hr IV BOLUS ONE Stop: 06/26/21 16:40 Last Infusion: 06/26/21 18:02 Dose: 0 mls/hr Documented by: Admin: 06/26/21 16:36 Dose: 1,000 mls/hr Documented by: JAYLEEN Vital Signs Vital signs: Vital Signs - 8 hr 06/26/21 15:45 06/26/21 16:25 06/26/21 16:30 Temperature 98.0 F Pulse Rate 60 56 L Respiratory Rate 16 16 Blood Pressure 181/77 H 120/86 131/70 Pulse Oximetry 98 98 MDM - Altered Mental Status Lab Data Result diagrams: 06/26/21 15:35 06/26/21 15:35 Labs: Lab Results 06/26/21 06/26/21 06/26/21 Range/Units 15:35 15:35 15:35 WBC 6.5 (4.5-11.0) X10^3/uL RBC 4.41 L (4.5-5.9) X10^6/uL Hgb 14.0 (13.5-17.5) g/dL Hct 41.6 (41-53) % MCV 94.3 (80-100) fL MCH 31.8 (26-34) PG MCHC 33.7 (30-36) % RDW 14.3 (11.6-14.8) % Plt Count 234 (150-400) X10^3/uL Neut % (Auto) 72.0 (50-75) % Lymph % (Auto) 14.6 L (25-40) % [place] % (Auto) 9.3 (3-14) % Eos % (Auto) 3.6 (2-4) % Baso % (Auto) 0.5 (0-2) % Neut # (Auto) 4700 (6760-7098) /uL Lymph # (Auto) 900 L (8887-5061) /uL [place] # (Auto) 600 (0-900) /uL Eos # (Auto) 200 (0-450) /uL Baso # (Auto) 0 (0-100) /uL Sodium 142 (137-145) mmol/L Potassium 4.7 (3.4-5.1) mmol/L Chloride 105 (98-107) mmol/L Carbon Dioxide 25 (22-32) mmol/L BUN 43 H (9-20) mg/dL Creatinine 1.60 H (0.66-1.25) mg/dL Estimated GFR 41.4 L (>60) mL/min BUN/Creatinine Ratio 26.9 H (6-22) Glucose 113 H (80-110) mg/dL Lactate 1.6 (0.7-2.1) mmol/L Calcium 9.1 (8.4-10.2) mg/dL Magnesium 2.3 (1.6-2.3) mg/dL Total Bilirubin 0.6 (0.2-1.3) mg/dL AST 24 (17-59) IU/L ALT 15 (<50) IU/L Alkaline Phosphatase 59 (38-126) U/L Total Creatine Kinase (55-170) U/L CK-MB (CK-2) CK-MB (CK-2) Rel Index Troponin I (0.01-0.034) ng/mL NT-Pro-B Natriuret Pep 404 (<450) pg/mL Total Protein 8.2 (6.3-8.2) g/dL Albumin 4.8 (3.5-5.0) g/dL Globulin 3.4 (1.7-4.1) g/dL Albumin/Globulin Ratio 1.4 (1.0-2.8) SARS-CoV-2 (PCR) (Negative) 06/26/21 06/26/21 Range/Units 15:35 15:57 WBC (4.5-11.0) X10^3/uL RBC (4.5-5.9) X10^6/uL Hgb (13.5-17.5) g/dL Hct (41-53) % MCV (80-100) fL MCH (26-34) PG MCHC (30-36) % RDW (11.6-14.8) % Plt Count (150-400) X10^3/uL Neut % (Auto) (50-75) % Lymph % (Auto) (25-40) % [place] % (Auto) (3-14) % Eos % (Auto) (2-4) % Baso % (Auto) (0-2) % Neut # (Auto) (6354-2699) /uL Lymph # (Auto) (8480-1031) /uL [place] # (Auto) (0-900) /uL Eos # (Auto) (0-450) /uL Baso # (Auto) (0-100) /uL Sodium (137-145) mmol/L Potassium (3.4-5.1) mmol/L Chloride (98-107) mmol/L Carbon Dioxide (22-32) mmol/L BUN (9-20) mg/dL Creatinine (0.66-1.25) mg/dL Estimated GFR (>60) mL/min BUN/Creatinine Ratio (6-22) Glucose (80-110) mg/dL Lactate (0.7-2.1) mmol/L Calcium (8.4-10.2) mg/dL Magnesium (1.6-2.3) mg/dL Total Bilirubin (0.2-1.3) mg/dL AST (17-59) IU/L ALT (<50) IU/L Alkaline Phosphatase (38-126) U/L Total Creatine Kinase 83 (55-170) U/L CK-MB (CK-2) TNP CK-MB (CK-2) Rel Index TNP Troponin I < 0.012 (0.01-0.034) ng/mL NT-Pro-B Natriuret Pep (<450) pg/mL Total Protein (6.3-8.2) g/dL Albumin (3.5-5.0) g/dL Globulin (1.7-4.1) g/dL Albumin/Globulin Ratio (1.0-2.8) SARS-CoV-2 (PCR) Negative (Negative) Imaging Data CT scan - head: Radiologist's Impression: Launch?[place] [address] CT Scan Report Signed Patient: Sheldon Manriquez MR#: [id number] : 1935 Acct:[id number] Age/Sex: 86 / M Date of Service: 06/26/21 Loc: ED Accession Number: [id number] ?? Procedure: CT head/brain wo con Ordering Provider: Hermes Garcia D.O. PROCEDURE:? CT HEAD/BRAIN WO CON ? INDICATIONS:? altered, multiple falls ? TECHNIQUE:? Noncontrast 4.5 mm thick angled axial sections acquired from the foramen magnum to the vertex, with coronal and sagittal reformats.? For radiation dose reduction, the following was used:? automated exposure control, adjustment of mA and/or kV according to patient size.? ? COMPARISON:? None. ? FINDINGS:? Image quality:? Excellent.? ? CSF spaces:? Basal cisterns are patent.? No extra-axial fluid collections.? The ventricles are symmetric in size and shape.? ? Brain:? No intracranial bleeds or masses.? Punctate calcification is present within the left caudate.? There is marked cerebral volume loss for age, with resultant ventricular and sulcal prominence.? There are periventricular and deep white matter chronic small vessel ischemic changes.? There is intracranial internal carotid artery atherosclerosis.? ? ? Skull and face:? Calvarium and visualized facial bones appear intact, without suspicious lesions.? ? Sinuses:? Visualized sinuses and mastoids are clear.? ? IMPRESSION:? ? 1. No acute intracranial findings. ? 2. Extensive findings likely associated with chronic microvascular ischemic change.? ? ? Dictated by: Sophie Mcneill M.D. on 06/26/2021 at 16:27 ? ? Approved by: Sophie Mcneill M.D. on 06/26/2021 at 16:29 ? MDM Narrative Medical decision making narrative: Patient has a very reassuring history and physical exam. There is no significant abnormality and labs or imaging. Patient is at baseline per medics and staff. No indication for specific intervention. No indication for hospitalization or other specific therapy. Return precautions given and questions answered to his apparent satisfaction Discharge Plan Departure Patient Disposition: Home Clinical Impression: Feared complaint without diagnosis, Fall Instructions: How to Prevent Falls Activity Restrictions/Additional Instructions: *You have been diagnosed with [Fall without obvious injury. Your physical exam a, history, labs and imaging are very reassuring and there is no indication of any significant underlying illness or injury that would require specific intervention *What to do: *Please continue to take your regular medications as directed. [] New medication prescriptions sent to your pharmacy: [ ] [ ] New medication written as a paper prescription [ x] No new medications given *Please follow up with your primary care provider in 2-3 days, call for an appointment. Let them know you were seen in the Emergency Department and that we ask that you be seen in follow up. We will electronically transmit a record of today's note if your PCP is in our system *If you do not have a primary care provider please contact the [facility] Resource line at [phone]. They will ask some questions about your medical history and help get you set up with a doctor in the community. *Return to Emergency Department if you should have any new, worsening or concerning symptoms, such as [fever greater than 101 F, shaking chills, worsening pain, persistent vomiting or other bothersome symptoms] Prescriptions: No Action quetiapine 25 mg Tablet 25 mg PO DAILY 0RF terazosin 2 mg Capsule 2 mg PO BEDTIME 0RF temazepam 30 mg Capsule 30 mg PO BEDTIME 0RF mirtazapine 7.5 mg Tablet 7.5 mg PO DAILY 0RF acetaminophen [Tylenol] 325 mg Capsule 650 mg PO Q4H PRN (Reason: Pain (Scale Score 1-3)) 0RF metoprolol succinate 25 mg Cap,Sprinkle,Er 24hr Dose Pack 25 mg PO DAILY 0RF
[2021-06-26 15:57] LABS: Add Manual Diff / Slide Review NO; Basophils Absolute Auto 0 /uL (0-100); Basophils Percent Auto 0.5 % (0-2); Eosinophils Absolute Auto 200 /uL (0-450); Eosinophils Percent Auto 3.6 % (2-4); Hematocrit 41.6 % (41-53); Lymphocytes Absolute Auto 900 /uL (1100-4500); Lymphocytes Percent Auto 14.6 % (25-40); Mean Corpuscular HGB Conc 33.7 % (30-36); Mean Corpuscular Hemoglobin 31.8 PG (26-34); Mean Corpuscular Volume 94.3 fL (80-100); Monocytes Absolute Auto 600 /uL (0-900); Monocytes Percent Auto 9.3 % (3-14); Neutrophils Absolute Auto 4700 /uL (1500-7000); Platelet Count 234 X10^3/uL (150-400); Red Blood Cell Count 4.41 X10^6/uL (4.5-5.9); Red Cell Distribution Width 14.3 % (11.6-14.8); White Blood Cell Count 6.5 X10^3/uL (4.5-11.0)
[2021-06-26 16:10] LABS: Creatine Kinase 83 U/L (55-170)
[2021-06-26 16:11] LABS: Lactate (Lactic Acid) 1.6 mmol/L (0.7-2.1)
[2021-06-26 16:12] LABS: Alanine Aminotransferase 15 IU/L (<50); Albumin 4.8 g/dL (3.5-5.0); Albumin Globulin Ratio 1.4 (1.0-2.8); Alkaline Phosphatase 59 U/L (38-126); Aspartate Aminotransferase 24 IU/L (17-59); BUN Creatinine Ratio 26.9 (6-22); Bilirubin Total 0.6 mg/dL (0.2-1.3); Blood Urea Nitrogen 43 mg/dL (9-20); Calcium 9.1 mg/dL (8.4-10.2); Carbon Dioxide 25 mmol/L (22-32); Chloride 105 mmol/L (98-107); Estimated Glomerular Filt Rate 41.4 mL/min (>60); Globulin 3.4 g/dL (1.7-4.1); Glucose 113 mg/dL (80-110); HEMOLYSIS 20 (0-50); Magnesium 2.3 mg/dL (1.6-2.3); Potassium 4.7 mmol/L (3.4-5.1); Sodium 142 mmol/L (137-145); Total Protein 8.2 g/dL (6.3-8.2)
[2021-06-26 16:21] LABS: NT-proBNP (BNP-Adult 18+) 404 pg/mL (<450)
[2021-06-26 16:23] LABS: Troponin I < 0.012 ng/mL (0.01-0.034)
[2021-06-26 16:25] VITALS: BP 120/86; PULSE 56; RESP 16; O2SAT 98
[2021-06-26 16:30] VITALS: BP 131/70
[2021-06-26 16:34] LABS: COVID19 -Nasal RAPID Negative (Negative)
[2021-06-26] MEDS: SODIUM CHLORIDE 0.9% 1,000 ML 1000 ML IV (16:36)
--- NOTE | 2021-06-26 16:40 | PC.NURSE ---
Niece reports patient was telling old stories he was staring up at the ceiling and talking about how the big birds were not letting the little birds in niece concerned that he was more confused than normal.
== END 2021-06-26 19:17 | disposition home or self-care (01) ==
PROVIDERS: Emergency Provider Emergency Medicine
DX: R29.6 Repeated falls (principal); Z87.891 Personal history of nicotine dependence; Z20.822 Contact with and (suspected) exposure to COVID-19; I10 Essential (primary) hypertension; Z86.79 Personal history of other diseases of the circulatory system
CPT/HCPCS: 36415; 70450; 71045; 80053; 82550; 83605; 83735; 83880; 84484; 85025; 87040; 87635; 93005; 93010; 96360; 99284; C9803

== ENCOUNTER → 2021-07-17 07:41 | Outpatient (ROUT) | payer MEDICARE, MEDICAID, SELFPAY ==
[2021-07-17 08:04] LABS: Add Manual Diff / Slide Review NO; Basophils Absolute Auto 0 /uL (0-100); Eosinophils Absolute Auto 300 /uL (0-450); Eosinophils Percent Auto 7.2 % (2-4); Hematocrit 35.8 % (41-53); Hemoglobin 12.4 g/dL (13.5-17.5); Lymphocytes Absolute Auto 1200 /uL (1100-4500); Lymphocytes Percent Auto 25.9 % (25-40); Mean Corpuscular HGB Conc 34.6 % (30-36); Mean Corpuscular Volume 92.6 fL (80-100); Monocytes Absolute Auto 700 /uL (0-900); Monocytes Percent Auto 14.2 % (3-14); Neutrophils Absolute Auto 2400 /uL (1500-7000); Neutrophils Percent Auto 51.7 % (50-75); Platelet Count 198 X10^3/uL (150-400); Red Blood Cell Count 3.87 X10^6/uL (4.5-5.9); Red Cell Distribution Width 13.9 % (11.6-14.8); White Blood Cell Count 4.7 X10^3/uL (4.5-11.0)
[2021-07-17 08:19] LABS: Alanine Aminotransferase 14 IU/L (<50); Albumin 3.6 g/dL (3.5-5.0); Albumin Globulin Ratio 1.3 (1.0-2.8); Alkaline Phosphatase 45 U/L (38-126); Aspartate Aminotransferase 20 IU/L (17-59); BUN Creatinine Ratio 23.5 (6-22); Bilirubin Total 0.6 mg/dL (0.2-1.3); Blood Urea Nitrogen 32 mg/dL (9-20); Calcium 8.2 mg/dL (8.4-10.2); Carbon Dioxide 28 mmol/L (22-32); Chloride 109 mmol/L (98-107); Estimated Glomerular Filt Rate 50 mL/min (>60); Globulin 2.7 g/dL (1.7-4.1); Glucose 83 mg/dL (80-110); HEMOLYSIS < 15 (0-50); Potassium 3.8 mmol/L (3.4-5.1); Sodium 141 mmol/L (137-145); Total Protein 6.3 g/dL (6.3-8.2)
== END ==
PROVIDERS: Visit Provider Nurse Practitioner Gerontology
DX: N40.0 Benign prostatic hyperplasia without lower urinary tract symptoms (principal); I48.20 Chronic atrial fibrillation, unspecified; I10 Essential (primary) hypertension
CPT/HCPCS: 36415; 80053; 84153; 85025

== ENCOUNTER → 2021-10-02 08:35 | Outpatient (ROUT) | payer MEDICARE, MEDICAID, SELFPAY ==
[2021-10-02 09:40] LABS: BUN Creatinine Ratio 25.8 (6-22); Blood Urea Nitrogen 40 mg/dL (9-20); Calcium 8.6 mg/dL (8.4-10.2); Carbon Dioxide 29 mmol/L (22-32); Chloride 108 mmol/L (98-107); Estimated Glomerular Filt Rate 43 mL/min (>60); Glucose 80 mg/dL (80-110); HEMOLYSIS < 15 (0-50); Potassium 4.7 mmol/L (3.4-5.1); Sodium 141 mmol/L (137-145)
== END ==
PROVIDERS: Visit Provider Internal Medicine
DX: N18.30 Chronic kidney disease, stage 3 unspecified (principal)
CPT/HCPCS: 36415; 80048

== ENCOUNTER → 2021-11-02 15:09 | Outpatient (ROUT) | payer MEDICARE, MEDICAID, SELFPAY ==
[2021-11-02 15:17] LABS: Appearance Urine UA CLEAR; Bilirubin Urine UA NEGATIVE (NEGATIVE); Color Urine UA YELLOW; Glucose Urine UA NEGATIVE (Negative); Ketones Urine UA NEGATIVE (NEGATIVE); Leukocyte Esterase Urine UA 1+ (NEGATIVE); Nitrite Urine UA NEGATIVE (Negative); Occult Blood Urine UA 3+ (Negative); Protein Urine UA 1+ (Negative); Urobilinogen Urine UA 0.2 E.U./dL (0.2); pH Urine UA 5.5 (4.5-8.0)
[2021-11-02 15:34] LABS: Amorphous Sediment Urine 2+; Bacteria Urine Many (>30); Culture Indicated Urine Specimen Cultured; RBC Urine 1-5/HPF (0-5/HPF); Squamous Epithelial Cell Urine 0-1 /HPF (0-5/HPF); WBC Urine 10-30/HPF (0-5/HPF)
== END ==
PROVIDERS: Visit Provider Nurse Practitioner Family
DX: R30.0 Dysuria (principal); R44.3 Hallucinations, unspecified; R39.15 Urgency of urination; R29.6 Repeated falls
CPT/HCPCS: 81001; 87077; 87086; 87186

== ENCOUNTER 2021-11-04 13:35 | Inpatient (IN) | payer MEDICARE, MEDICAID, SELFPAY ==
[2021-11-04] VITALS (10 sets, daily range): BP systolic 74–154; BP diastolic 52–89; PULSE 56–135; RESP 18–20; TEMP 36.5–37.2; O2SAT 94–99; BMI 23.0; BMI 23.6
--- NOTE | 2021-11-04 13:52 | DI.RAD.S_ITS ---
PROCEDURE: XR CHEST 1V INDICATIONS: chest pain TECHNIQUE: One view of the chest was acquired. COMPARISON: [facility], CR, XR CHEST 1V, 06/26/2021, 15:37. FINDINGS: Surgical changes and devices: None. Lungs and pleura: Lungs are clear. No pleural effusions or pneumothorax. Mediastinum: Mediastinal contours appear normal. Heart size is normal. Atherosclerotic vascular calcification noted in the aortic arch. Bones and chest wall: No suspicious bony lesions. Overlying soft tissues appear unremarkable. IMPRESSION: No acute cardiopulmonary findings Approved by: Mayito Sapp M.D. on 11/04/2021 at 14:19
[2021-11-04 14:23] LABS: Add Manual Diff / Slide Review NO; Basophils Absolute Auto 0 /uL (0-100); Basophils Percent Auto 0.4 % (0-2); Eosinophils Absolute Auto 100 /uL (0-450); Eosinophils Percent Auto 0.6 % (2-4); Hematocrit 35.4 % (41-53); Hemoglobin 12.3 g/dL (13.5-17.5); Lymphocytes Absolute Auto 500 /uL (1100-4500); Lymphocytes Percent Auto 4.8 % (25-40); Mean Corpuscular HGB Conc 34.9 % (30-36); Mean Corpuscular Hemoglobin 32.3 PG (26-34); Mean Corpuscular Volume 92.6 fL (80-100); Monocytes Absolute Auto 1400 /uL (0-900); Monocytes Percent Auto 12.8 % (3-14); Neutrophils Absolute Auto 9000 /uL (1500-7000); Neutrophils Percent Auto 81.4 % (50-75); Platelet Count 226 X10^3/uL (150-400); Red Blood Cell Count 3.82 X10^6/uL (4.5-5.9); Red Cell Distribution Width 13.7 % (11.6-14.8); White Blood Cell Count 11.1 X10^3/uL (4.5-11.0)
[2021-11-04 14:33] LABS: Alanine Aminotransferase 30 IU/L (<50); Albumin 3.4 g/dL (3.5-5.0); Albumin Globulin Ratio 1.1 (1.0-2.8); Alkaline Phosphatase 65 U/L (38-126); Aspartate Aminotransferase 26 IU/L (17-59); BUN Creatinine Ratio 24.5 (6-22); Bilirubin Total 1.2 mg/dL (0.2-1.3); Blood Urea Nitrogen 36 mg/dL (9-20); Calcium 8.1 mg/dL (8.4-10.2); Carbon Dioxide 25 mmol/L (22-32); Chloride 107 mmol/L (98-107); Creatine Kinase 117 U/L (55-170); Estimated Glomerular Filt Rate 46 mL/min (>60); Globulin 3.1 g/dL (1.7-4.1); Glucose 148 mg/dL (80-110); HEMOLYSIS < 15 (0-50); Lipase 31 U/L (23-300); Magnesium 2.2 mg/dL (1.6-2.3); Potassium 4.6 mmol/L (3.4-5.1); Sodium 139 mmol/L (137-145); Total Protein 6.5 g/dL (6.3-8.2)
[2021-11-04 14:45] LABS: Troponin I 0.016 ng/mL (0.01-0.034)
[2021-11-04 14:48] LABS: CKMB % Relative Index 1.5 % (1.5-5.0); Creatine Kinase MB 1.72 ng/mL (<2.37)
[2021-11-04] MEDS: SODIUM CHLORIDE 0.9% 500 ML 1000 ML IV (16:00)
--- NOTE | 2021-11-04 16:05 | DI.CT.S_ITS ---
PROCEDURE: CT HEAD/BRAIN WO CON INDICATIONS: altered TECHNIQUE: Noncontrast 4.5 mm thick angled axial sections acquired from the foramen magnum to the vertex, with coronal and sagittal reformats. For radiation dose reduction, the following was used: automated exposure control, adjustment of mA and/or kV according to patient size. COMPARISON: [facility], CT, CT HEAD/BRAIN WO CON, 06/26/2021, 15:50. FINDINGS: Image quality: Excellent. CSF spaces: Basal cisterns are patent. No extra-axial fluid collections. Ventricles are normal in size and shape. Brain: No midline shift. No intracranial masses or hemorrhage. Lopez-white matter interface is normal. Moderate cerebral and cerebellar volume loss with multifocal white matter chronic ischemic change noted. Atherosclerotic calcification noted associated with cavernous segments of both internal carotid arteries. Skull and face: Calvarium and visualized facial bones are intact, without suspicious lesions. Sinuses: Visualized sinuses and mastoids are clear. IMPRESSION: Atrophy and chronic ischemic change without acute hemorrhage or mass effect Approved by: Mayito Sapp M.D. on 11/04/2021 at 15:56
[2021-11-04] MEDS: cefTRIAXone 1,000 MG in SODIUM CHLORIDE 0.9% 100 ML 200 MG IV (16:51)
[2021-11-04] MEDS: ACETAMINOPHEN 325 MG TABLET 975 MG PO (18:27)
--- NOTE | 2021-11-04 18:56 | ED_ITS ---
HPI - Fall General Chief Complaint: Fall Stated Complaint: uti, lots of falls Time Seen by Provider: 11/04/21 13:59 Source: EMS Mode of arrival: EMS History of Present Illness HPI Narrative: 86-year-old male former smoker with history of hypertension and hyperlipidemia an unknown arrhythmia presents from a local longterm facility for evaluation of dizziness, weakness associated with multiple falls and altered mental status. The patient is a terrible historian but report is he is not at his baseline. He was evaluated a few days ago and had a urine demonstrating a UTI, however for some reason he is not been treated for this infection yet. The culture has already resulted in his sent here for further evaluation. There is no obvious injury as a consequence of his falls. He normally is conversive and ambulates with the use of a walker. He denies chest pain or shortness of breath. He denies any nausea, vomiting or diarrhea. There is no report of medication change Related Data Home Medications Medication Instructions Recorded Confirmed acetaminophen 325 mg capsule 650 mg PO Q4H PRN Pain (Scale 01/01/18 11/04/21 (Tylenol) Score 1-3) mirtazapine 7.5 mg tablet 15 mg PO BEDTIME 01/01/18 11/04/21 artificial tears(hypromellose) 0.4 1 drp ophthalmic (eye) PRN PRN Dry 11/04/21 11/04/21 % eye drops Eyes aspirin 325 mg tablet 325 mg PO DAILY 11/04/21 11/04/21 docusate sodium 100 mg tablet 100 mg PO BID 11/04/21 11/04/21 donepezil 10 mg tablet 10 mg PO DAILY 11/04/21 11/04/21 finasteride 5 mg tablet 5 mg PO DAILY 11/04/21 11/04/21 latanoprost 0.005 % eye drops 1 drp ophthalmic (eye) DAILY 11/04/21 11/04/21 loperamide 2 mg tablet 2 mg PO TID PRN Diarrhea 11/04/21 11/04/21 magnesium hydroxide 400 mg/5 mL 1,200 mg PO BEDTIME PRN 11/04/21 11/04/21 oral suspension (Milk of Magnesia) Constipation propranolol 60 mg capsule,24 60 mg PO DAILY 11/04/21 11/04/21 hr,extended release sertraline 50 mg tablet 50 mg PO DAILY 11/04/21 11/04/21 trazodone 50 mg tablet 50 mg PO BEDTIME 11/04/21 11/04/21 Allergies Allergy/AdvReac Type Severity Reaction Status Date / Time No Known Drug Allergies Allergy Verified 06/26/21 15:49 Review of Systems Review of Systems Narrative: GENERAL: See HPI HEENT: Denies sinus pain, ear pain, sore throat, difficulty swallowing, dizziness. RESPIRATORY: Denies dyspnea, cough, wheezing, hemoptysis, sputum. CARDIOVASCULAR: See HPI GASTROINTESTINAL: Denies nausea, vomiting, abdominal pain, diarrhea, constipation, melena. : See HPI MUSCULOSKELETAL: denies weakness, joint pain, or bony pain SKIN: Denies rash, skin lesions, or other NEUROLOGIC: Denies weakness, headache, numbness, change in speech, confusion, seizures, incoordination. PSYCHIATRIC: No concerning psychosocial issues. 12 point review of systems is negative except for those stated above Patient History Medical History Dyslipidemia Hypertension Insomnia Social History household members: caregiver Smoking Status: Former smoker Smoking Status: Former smoker alcohol intake frequency: other Alcohol type: beer Substance Use Type: does not use Exam Narrative Exam Narrative: GENERAL: [86] year old patient appears stated age. Well-developed patient, in mild distress. HEAD: Atraumatic. Normocephalic. EYES: Pupils equal round and reactive. Extraocular motions intact. No scleral icterus. No injection or drainage. ENT: Dry mucous membranes Nose without bleeding, purulent drainage. Throat without erythema, tonsillar hypertrophy or exudate. Airway patent. NECK: Trachea midline. Non tender CARDIOVASCULAR: Regular rate and rhythm without murmurs, gallops, or rubs. RESPIRATORY: Clear to auscultation. Breath sounds equal bilaterally. No wheezes, rales, or rhonchi. GASTROINTESTINAL: Abdomen soft, non-tender, nondistended. EXTREMITIES: No edema or joint tenderness. BACK: Nontender without deformity or crepitance. No flank tenderness. NEURO: AOx3. SKIN: No rash or erythema of visible areas Initial Vital Signs Initial Vital Signs: Vital Signs Temperature 98.6 F 11/04/21 13:46 Pulse Rate 61 11/04/21 13:46 Respiratory Rate 18 11/04/21 13:46 Blood Pressure 108/54 L 11/04/21 13:46 Pulse Oximetry 94 11/04/21 13:46 Oxygen Delivery Method 11/04/21 13:46 Course Orders Ordered: Acetaminophen (Acetaminophen 325 Mg Tablet) 650 mg PO Q6HR PRN PRN Reason: Fever/Mild Pain (1-3) Last Admin: 11/06/21 11:40 Dose: 650 mg Documented By: FREDYW Artificial Tears (Polyvinyl Alcohol Drops) 1 drops EYE-BOTH PRN PRN PRN Reason: DRY EYES Aspirin (Aspirin 325 Mg Tablet) 325 mg PO DAILY [facility] Last Admin: 11/06/21 11:40 Dose: 325 mg Documented By: Admin: 11/05/21 11:45 Dose: Not Given Documented By: LDV Donepezil HCl (Donepezil 5 Mg Tablet) 10 mg PO DAILY [facility] Last Admin: 11/05/21 11:46 Dose: Not Given Documented By: LDV Enoxaparin Sodium (Enoxaparin 40 Mg/0.4 Ml Syringe) 40 mg SUBCUT DAILY [facility] Last Admin: 11/06/21 11:41 Dose: 40 mg Documented By: Admin: 11/05/21 11:46 Dose: Not Given Documented By: LDV Finasteride (Finasteride 5 Mg Tablet) 5 mg PO DAILY [facility] Last Admin: 11/06/21 11:41 Dose: 5 mg Documented By: Admin: 11/05/21 11:46 Dose: Not Given Documented By: LDV Ceftriaxone Sodium 1,000 mg/ (Sodium Chloride) 100 mls @ 200 mls/hr IV Q24H [facility] Last Admin: 11/05/21 16:40 Dose: 200 mls/hr Documented By: LDV Latanoprost (Latanoprost 0.005% Ophth 2.5 Ml) 1 drops EYE-BOTH DAILY [facility] Last Admin: 11/05/21 11:46 Dose: Not Given Documented By: LDV Lorazepam (Lorazepam 2 Mg/Ml Oral Anna) 0.5 mg PO Q4HR PRN PRN Reason: Anxiety Last Admin: 11/06/21 11:41 Dose: 0.5 mg Documented By: Admin: 11/06/21 00:43 Dose: 0.5 mg Documented By: MAILCK Mirtazapine (Mirtazapine 15 Mg Tablet) 15 mg PO BEDTIME [facility] Last Admin: 11/05/21 21:56 Dose: 15 mg Documented By: MALICK Ondansetron HCl (Ondansetron 4 Mg/2 Ml Inj) 4 mg IV Q6HR PRN PRN Reason: Nausea And Vomiting Propranolol HCl (Propranolol 10 Mg Tablet) 20 mg PO TID [facility] Last Admin: 11/06/21 11:40 Dose: 20 mg Documented By: IRAIDA Quetiapine Fumarate (Quetiapine 25 Mg Tablet) 12.5 mg PO BEDTIME [facility] Last Admin: 11/05/21 21:56 Dose: 12.5 mg Documented By: Admin: 11/04/21 23:31 Dose: 12.5 mg Documented By: MALICK Sennosides (Sennosides 8.6 Mg Tablet) 8.6 mg PO BEDTIME [facility] Sertraline HCl (Sertraline 50 Mg Tablet) 50 mg PO DAILY [facility] Last Admin: 11/06/21 11:40 Dose: 50 mg Documented By: Admin: 11/05/21 11:46 Dose: Not Given Documented By: DIPTI Trazodone HCl (Trazodone 50 Mg Tablet) 50 mg PO BEDTIME [facility] Last Admin: 11/05/21 23:43 Dose: 50 mg Documented By: Admin: 11/05/21 02:21 Dose: 50 mg Documented By: MALICK Trimethoprim/Sulfamethoxazole (Trimeth/Sulfa 160/800 (Ds) Tablet) 1 tab PO BID [facility] Stop: 11/10/21 23:59 Last Admin: 11/06/21 11:40 Dose: 1 tab Documented By: Admin: 11/05/21 21:57 Dose: 1 tab Documented By: Admin: 11/05/21 13:19 Dose: 1 tab Documented By: DIPTI Discontinued Medications Acetaminophen (Acetaminophen 325 Mg Tablet) 975 mg PO NOW ONE Stop: 11/04/21 18:14 Last Admin: 11/04/21 18:27 Dose: 975 mg Documented By: RADHIKA Docusate Sodium (Docusate 100 Mg Capsule) 100 mg PO BID [facility] Last Admin: 11/06/21 11:02 Dose: Not Given Documented By: Admin: 11/05/21 21:56 Dose: 100 mg Documented By: Admin: 11/05/21 11:45 Dose: Not Given Documented By: LDV Enoxaparin Sodium (Enoxaparin 40 Mg/0.4 Ml Syringe) 40 mg SUBCUT DAILY [facility] Sodium Chloride (Normal Saline 0.9%) 500 mls @ 1,000 mls/hr IV BOLUS ONE Stop: 11/04/21 16:34 Last Infusion: 11/04/21 18:00 Dose: 0 mls/hr Documented By: Admin: 11/04/21 16:00 Dose: 1,000 mls/hr Documented By: OW Ceftriaxone Sodium 1,000 mg/ (Sodium Chloride) 100 mls @ 200 mls/hr IV NOW ONE Stop: 11/04/21 16:06 Last Infusion: 11/04/21 17:23 Dose: 0 mls/hr Documented By: Admin: 11/04/21 16:51 Dose: 200 mls/hr Documented By: OW Lorazepam (Lorazepam 0.5 Mg/0.25 Ml Syringe) 1 mg IV Q4H PRN PRN Reason: AGITATION Lorazepam (Lorazepam 20 Mg/10 Ml Vial) 1 mg IV Q4H PRN PRN Reason: agitation Last Admin: 11/04/21 22:18 Dose: 1 mg Documented By: MALICK Lorazepam (Lorazepam 2 Mg/Ml Inj) 1 mg IV Q4H PRN PRN Reason: agitation Lorazepam (Lorazepam 2 Mg/Ml Inj) 1 mg IV Q4H PRN PRN Reason: agitation Nitrofurantoin Macrocrystals (Nitrofurantoin Er 100 Mg Capsule) 100 mg PO BID [facility] Last Admin: 11/05/21 11:47 Dose: Not Given Documented By: LDV Propranolol HCl (Propranolol Er 60 Mg Capsule) 60 mg PO DAILY [facility] Last Admin: 11/05/21 11:46 Dose: Not Given Documented By: LDV Propranolol HCl (Propranolol Er 60 Mg Capsule) 60 mg PO DAILY [facility] Last Admin: 11/06/21 11:01 Dose: Not Given Documented By: CEW Vital Signs Vital signs: Vital Signs - 8 hr 11/04/21 13:46 11/04/21 15:30 11/04/21 14:30 Temperature 98.6 F 97.7 F Pulse Rate 61 56 L 60 Pulse Rate [Orthostatic Sitting] Pulse Rate [Orthostatic Standing] Respiratory Rate 18 20 20 Blood Pressure 108/54 L 128/69 128/60 Blood Pressure [Orthostatic Sitting] Pulse Oximetry 94 99 97 Oxygen Delivery Method Room Air Room Air Room Air 11/04/21 16:30 11/04/21 18:35 11/04/21 18:50 Temperature 97.9 F Pulse Rate 58 L 133 H Pulse Rate [Orthostatic Sitting] 125 H Pulse Rate [Orthostatic Standing] 135 H Respiratory Rate 20 20 Blood Pressure 154/67 H 104/70 Blood Pressure [Orthostatic Sitting] 74/52 L Pulse Oximetry 98 99 Oxygen Delivery Method Room Air MDM - Fall Lab Data Result diagrams: 11/06/21 06:09 11/06/21 06:09 Labs: Lab Results 11/04/21 11/04/21 Range/Units 14:11 14:11 WBC 11.1 H (4.5-11.0) X10^3/uL RBC 3.82 L (4.5-5.9) X10^6/uL Hgb 12.3 L (13.5-17.5) g/dL Hct 35.4 L (41-53) % MCV 92.6 (80-100) fL MCH 32.3 (26-34) PG MCHC 34.9 (30-36) % RDW 13.7 (11.6-14.8) % Plt Count 226 (150-400) X10^3/uL Neut % (Auto) 81.4 H (50-75) % Lymph % (Auto) 4.8 L (25-40) % [place] % (Auto) 12.8 (3-14) % Eos % (Auto) 0.6 L (2-4) % Baso % (Auto) 0.4 (0-2) % Neut # (Auto) 9000 H (4065-9682) /uL Lymph # (Auto) 500 L (1385-9655) /uL [place] # (Auto) 1400 H (0-900) /uL Eos # (Auto) 100 (0-450) /uL Baso # (Auto) 0 (0-100) /uL Sodium 139 (137-145) mmol/L Potassium 4.6 (3.4-5.1) mmol/L Chloride 107 (98-107) mmol/L Carbon Dioxide 25 (22-32) mmol/L BUN 36 H (9-20) mg/dL Creatinine 1.47 H (0.66-1.25) mg/dL Estimated GFR 46 L (>60) mL/min BUN/Creatinine Ratio 24.5 H (6-22) Glucose 148 H (80-110) mg/dL Calcium 8.1 L (8.4-10.2) mg/dL Magnesium 2.2 (1.6-2.3) mg/dL Total Bilirubin 1.2 (0.2-1.3) mg/dL AST 26 (17-59) IU/L ALT 30 (<50) IU/L Alkaline Phosphatase 65 (38-126) U/L Total Creatine Kinase 117 (55-170) U/L CK-MB (CK-2) 1.72 (<2.37) ng/mL CK-MB (CK-2) Rel Index 1.5 (1.5-5.0) % Troponin I 0.016 (0.01-0.034) ng/mL Total Protein 6.5 (6.3-8.2) g/dL Albumin 3.4 L (3.5-5.0) g/dL Globulin 3.1 (1.7-4.1) g/dL Albumin/Globulin Ratio 1.1 (1.0-2.8) Lipase 31 (23-300) U/L Discharge Plan Departure Patient Disposition: Admitted as Observation Clinical Impression: Acute UTI, Weakness Admit Date/Time: 11/04/21 19:15 Admit Provider: Jessy Sibley
[2021-11-04 20:08] LABS: COVID19 -Nasal RAPID Negative (Negative)
--- NOTE | 2021-11-04 21:52 | PM.HP.1 ---
History of Present Illness History of Present Illness Date Patient Seen: 11/04/21 Time Patient Seen: 21:30 Chief complaint: uti, lots of falls Narrative: Unable to obtain a history from the patient as he is agitated and very confused. History based on ED report and review of alf records. Sheldon Manriquez is an 86 y.o. resident of [facility] who reportedly had multiple falls, confusion and was altered. I was informed that the patient at baseline is conversive and ambulates with a walker. Per the ED provider the patient was evaluated possibly at the facility for increased confusion and determined to have had a urinary tract infection. He was prescribed I believe Bactrim, however they were unable to reach the provider for a prescription and he reportedly started his 1st dose today. Patient takes current medications for dementia, BPH, and dry eye. CT of the head and chest x-ray were both negative for any acute process. He is afebrile, blood pressure 147/89, heart rate 113, respiratory rate 18, oxygen saturation of 98% on room air he weighs 79 kg with a BMI of 24. Is a mildly elevated white count of 11.1 and a left shift, mildly anemic with a hemoglobin of 12.3 and 35.4, platelet count of 226, neutrophil count is 9000, creatinine is 1.47 with a BUN of 36 and a EGFR 46, glucose 148 calcium 8.1 liver enzymes within normal limits, albumin is slightly low at 3.4 and COVID-19 PCR is negative. Advanced care discussion with niece Staci Daniel. Stated she and patient and patient's nephew Alon Stokes (incorrectly named Alon Sweet). Stated patient had a seizure history and was hospitalized at [facility] during his youth and underwent ECT therapy and was never the same. 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 Stated he was kicked out of an independent senor living facility in [facility] and got him placed at [place]. Stated patient has had bouts of confusion and hallucinations, particularly when he has UTIs. FH: Mother age 84 of colon cancer, father age 60 of the same. Patient History Medical History Dyslipidemia Hypertension Insomnia Family & Social History Family history unavailable: Yes Social History: household members caregiver Tobacco & Substance use: Smoking Status Former smoker alcohol intake frequency other Substance Use Type does not use Meds Home Medications and Allergies Home Medications Medication Instructions Recorded Confirmed Type acetaminophen 325 mg capsule 650 mg PO Q4H PRN Pain (Scale 01/01/18 11/04/21 History (Tylenol) Score 1-3) mirtazapine 7.5 mg tablet 15 mg PO BEDTIME 01/01/18 11/04/21 History artificial tears(hypromellose) 0.4 1 drp ophthalmic (eye) PRN PRN Dry 11/04/21 11/04/21 History % eye drops Eyes aspirin 325 mg tablet 325 mg PO DAILY 11/04/21 11/04/21 History docusate sodium 100 mg tablet 100 mg PO BID 11/04/21 11/04/21 History donepezil 10 mg tablet 10 mg PO DAILY 11/04/21 11/04/21 History finasteride 5 mg tablet 5 mg PO DAILY 11/04/21 11/04/21 History latanoprost 0.005 % eye drops 1 drp ophthalmic (eye) DAILY 11/04/21 11/04/21 History loperamide 2 mg tablet 2 mg PO TID PRN Diarrhea 11/04/21 11/04/21 History magnesium hydroxide 400 mg/5 mL 1,200 mg PO BEDTIME PRN 11/04/21 11/04/21 History oral suspension (Milk of Magnesia) Constipation propranolol 60 mg capsule,24 60 mg PO DAILY 11/04/21 11/04/21 History hr,extended release sertraline 50 mg tablet 50 mg PO DAILY 11/04/21 11/04/21 History trazodone 50 mg tablet 50 mg PO BEDTIME 11/04/21 11/04/21 History Allergies Allergy/AdvReac Type Severity Reaction Status Date / Time No Known Drug Allergies Allergy Verified 06/26/21 15:49 Review of Systems Review of Systems ROS: Yes unobtainable due to mental status Exam Vital Signs (past 8 hours): - 11/04/21 15:30 11/04/21 14:30 11/04/21 16:30 Temperature 97.7 F Pulse Rate 56 L 60 58 L Pulse Rate [Orthostatic Sitting] Pulse Rate [Orthostatic Standing] Respiratory Rate 20 20 20 Blood Pressure 128/69 128/60 154/67 H Blood Pressure [Orthostatic Sitting] Pulse Oximetry 99 97 98 Oxygen Delivery Method Room Air Room Air Oxygen Flow Rate 11/04/21 18:35 11/04/21 18:50 11/04/21 19:30 Temperature 97.9 F Pulse Rate 133 H 133 H Pulse Rate [Orthostatic Sitting] 125 H Pulse Rate [Orthostatic Standing] 135 H Respiratory Rate 20 20 Blood Pressure 104/70 120/80 Blood Pressure [Orthostatic Sitting] 74/52 L Pulse Oximetry 99 97 Oxygen Delivery Method Room Air Room Air Oxygen Flow Rate 11/04/21 18:57 11/04/21 20:30 11/04/21 20:55 Temperature 97.9 F 98 F 99 F Pulse Rate 133 H 113 H Pulse Rate [Orthostatic Sitting] Pulse Rate [Orthostatic Standing] Respiratory Rate 20 18 Blood Pressure 115/84 147/89 H Blood Pressure [Orthostatic Sitting] Pulse Oximetry 98 98 Oxygen Delivery Method Room Air Oxygen Flow Rate 0 Oxygen Delivery Method Room Air Oxygen Flow Rate 0 Narrative Exam Narrative: Gen: Alert, agitated and confused well-nourished 86 y.o. male, is combative, kicking and hitting and will not allow physical contact HEENT: normocephalic, atraumatic, conjunctiva clear and on which I am unsure whether the patient is blind in the right eye as it is quite cloudy, sclera non-icteric, oral mucosa pink and moist Neck: supple, full ROM, no JVD, trachea is midline Skin: no lesions or rashes, dry and intact Neuro: Very confused, thinks he is in his regular room at his living facility. Speech clear. Extremities: moves all 4 extremities, is ambulatory, Psyche: Very agitated Objective Labs Result Diagrams: 11/04/21 14:11 11/04/21 14:11 Labs: Laboratory Results - last 24 hr 11/04/21 11/04/21 11/04/21 14:11 14:11 19:49 WBC 11.1 H RBC 3.82 L Hgb 12.3 L Hct 35.4 L MCV 92.6 MCH 32.3 MCHC 34.9 RDW 13.7 Plt Count 226 Neut % (Auto) 81.4 H Lymph % (Auto) 4.8 L [place] % (Auto) 12.8 Eos % (Auto) 0.6 L Baso % (Auto) 0.4 Neut # (Auto) 9000 H Lymph # (Auto) 500 L [place] # (Auto) 1400 H Eos # (Auto) 100 Baso # (Auto) 0 Sodium 139 Potassium 4.6 Chloride 107 Carbon Dioxide 25 BUN 36 H Creatinine 1.47 H Estimated GFR 46 L BUN/Creatinine Ratio 24.5 H Glucose 148 H Calcium 8.1 L Magnesium 2.2 Total Bilirubin 1.2 AST 26 ALT 30 Alkaline Phosphatase 65 Total Creatine Kinase 117 CK-MB (CK-2) 1.72 CK-MB (CK-2) Rel Index 1.5 Troponin I 0.016 Total Protein 6.5 Albumin 3.4 L Globulin 3.1 Albumin/Globulin Ratio 1.1 Lipase 31 SARS-CoV-2 (PCR) Negative Assessment & Plan Assessment & Plan narrative: Sheldon Manriquez is admitted for further evaluation and treatment for metabolic encephalopathy associated with the urinary tract infection. Acute urinary tract infection, present on admission Per alf report it sounds like this started earlier this week however they were unable to obtain medications for treatment He started on IV ceftriaxone 1 dose was provided in the emergency department and will continue Metabolic encephalopathy, acute, present on admission Patient is quite confused and it is unknown and if this is his baseline Will need to speak to the alf to find out how altered the patient is He will receive his nighttime medications for dimension depression and he has been ordered for Ativan 1 mg q.4 hours as needed for agitation I have started him on oral Seroquel 12.5 mg if he agrees to take medications orally VTE Prophylaxis: Wells risk score 1.5 [X]Enoxaparin 40 mg subQ once daily Bilateral SCDs Patient is admitted to the inpatient service due to the severity of disease, risks of further disease progression and this stay is expected to exceed 2 midnights. FEN: IV fluids: saline lock, diet: heart healthyl, labs: CBC, C/BMP, liver enzymes, Mag, PT/INR Consultants None Dispo: probable return to SNF Code status: DNR/DNI see advanced care planning comment above. [X] I have utilized all available immediate resources to obtain, update, or review of the patient's current medications COVID-19 COVID-19 status: Negative Result date/Date tested (Pos, Neg/Pending): 11/04/21 Time Spent With Patient Critical Care time: I spent a total of [] minutes of critical care time on this patient's care today; this time is exclusive of procedural time. Scores Wells' Criteria for PE Clinical signs and symptoms of DVT: No PE is #1 Dx or equally likely: No Heart rate > 100: Yes Immobilization at least 3 days or surg in previous 4 weeks: No History of PE or DVT: No Hemoptysis: No Malignancy w/Treatment within 6 months or palliative: No Wells' PE Score total: 1.5 Quality VTE Deep Vein Thrombosis/Pulmonary Embolism Present on Admission: No MIPS - Admit I confirm the patient?s Advance Care Plan is present, Code status is documented, Surrogate decision maker is in patient?s record [If Yes, STOP here]: Yes MIPS - DC The patient has current or prior documentation of left ventricular ejection fraction (LVEF) less than 40%, or moderate or severely depressed left ventricular systolic function.: No
[2021-11-04] MEDS: LORazepam 20 MG/10 ML VIAL IV (22:18)
[2021-11-04] MEDS: QUETIAPINE 25 MG TABLET 12.5 MG PO (23:31)
[2021-11-05] MEDS: TRAZODONE 50 MG TABLET PO ×2 (02:21→23:43)
[2021-11-05 06:20] LABS: Add Manual Diff / Slide Review NO; Basophils Absolute Auto 0 /uL (0-100); Basophils Percent Auto 0.6 % (0-2); Eosinophils Absolute Auto 200 /uL (0-450); Hematocrit 34.5 % (41-53); Hemoglobin 11.9 g/dL (13.5-17.5); Lymphocytes Absolute Auto 1300 /uL (1100-4500); Mean Corpuscular HGB Conc 34.6 % (30-36); Mean Corpuscular Hemoglobin 32.3 PG (26-34); Mean Corpuscular Volume 93.4 fL (80-100); Monocytes Absolute Auto 1100 /uL (0-900); Monocytes Percent Auto 14.4 % (3-14); Neutrophils Absolute Auto 5200 /uL (1500-7000); Platelet Count 202 X10^3/uL (150-400); Red Blood Cell Count 3.69 X10^6/uL (4.5-5.9); Red Cell Distribution Width 13.8 % (11.6-14.8); White Blood Cell Count 7.8 X10^3/uL (4.5-11.0)
[2021-11-05 06:36] LABS: Alanine Aminotransferase 26 IU/L (<50); Albumin 3.3 g/dL (3.5-5.0); Albumin Globulin Ratio 1.1 (1.0-2.8); Alkaline Phosphatase 62 U/L (38-126); Aspartate Aminotransferase 24 IU/L (17-59); BUN Creatinine Ratio 23.2 (6-22); Bilirubin Total 0.9 mg/dL (0.2-1.3); Blood Urea Nitrogen 36 mg/dL (9-20); Calcium 8.3 mg/dL (8.4-10.2); Carbon Dioxide 25 mmol/L (22-32); Chloride 109 mmol/L (98-107); Estimated Glomerular Filt Rate 43 mL/min (>60); Glucose 88 mg/dL (80-110); HEMOLYSIS < 15 (0-50); Magnesium 2.2 mg/dL (1.6-2.3); Potassium 4.4 mmol/L (3.4-5.1); Sodium 140 mmol/L (137-145); Total Protein 6.3 g/dL (6.3-8.2)
--- NOTE | 2021-11-05 08:16 | PM.PN.1 ---
Subjective Subjective Date Patient Seen: 11/05/21 Time Patient Seen: 08:15 Interval history: Nursing indicates that the patient has no new complaints. Difficult to arouse patient. Sleeping quietly. When I approached the patient was not able to fully arouse the patient but he did acknowledge my presence and did not seem to complain of anything. Exam Vital Signs (past 8 hours): Oxygen Delivery Method Room Air Oxygen Flow Rate 0 Narrative Exam Narrative: Unable to assess with the patient is oriented. Mostly sleeping. HEENT: Pupils equal reactive to light. No neck nodes palpable. Appears midline. Cardiovascular: Heart sounds S1 and S2. No extra sounds or murmurs. Peripheral pulses present. Respiratory: Adequate air entry throughout the lung moore. No wheezes or crackles. Gastrointestinal: Abdomen soft. Nontender. Bowel sounds normal. Musculoskeletal: Appears to be able to move all extremities volitionally. Neuro: Appears to have normal sensation of the extremities. Psych: Mostly lying to sleep. Appears sedated. Objective Labs Result Diagrams: 11/05/21 05:55 11/05/21 05:55 Labs: Laboratory Results - last 24 hr 11/04/21 11/04/21 11/04/21 14:11 14:11 19:49 WBC 11.1 H RBC 3.82 L Hgb 12.3 L Hct 35.4 L MCV 92.6 MCH 32.3 MCHC 34.9 RDW 13.7 Plt Count 226 Neut % (Auto) 81.4 H Lymph % (Auto) 4.8 L [place] % (Auto) 12.8 Eos % (Auto) 0.6 L Baso % (Auto) 0.4 Neut # (Auto) 9000 H Lymph # (Auto) 500 L [place] # (Auto) 1400 H Eos # (Auto) 100 Baso # (Auto) 0 Sodium 139 Potassium 4.6 Chloride 107 Carbon Dioxide 25 BUN 36 H Creatinine 1.47 H Estimated GFR 46 L BUN/Creatinine Ratio 24.5 H Glucose 148 H Calcium 8.1 L Magnesium 2.2 Total Bilirubin 1.2 AST 26 ALT 30 Alkaline Phosphatase 65 Total Creatine Kinase 117 CK-MB (CK-2) 1.72 CK-MB (CK-2) Rel Index 1.5 Troponin I 0.016 Total Protein 6.5 Albumin 3.4 L Globulin 3.1 Albumin/Globulin Ratio 1.1 Lipase 31 SARS-CoV-2 (PCR) Negative 11/05/21 11/05/21 05:55 05:55 WBC 7.8 RBC 3.69 L Hgb 11.9 L Hct 34.5 L MCV 93.4 MCH 32.3 MCHC 34.6 RDW 13.8 Plt Count 202 Neut % (Auto) 66.0 Lymph % (Auto) 16.0 L [place] % (Auto) 14.4 H Eos % (Auto) 3.0 Baso % (Auto) 0.6 Neut # (Auto) 5200 Lymph # (Auto) 1300 [place] # (Auto) 1100 H Eos # (Auto) 200 Baso # (Auto) 0 Sodium 140 Potassium 4.4 Chloride 109 H Carbon Dioxide 25 BUN 36 H Creatinine 1.55 H Estimated GFR 43 L BUN/Creatinine Ratio 23.2 H Glucose 88 Calcium 8.3 L Magnesium 2.2 Total Bilirubin 0.9 AST 24 ALT 26 Alkaline Phosphatase 62 Total Creatine Kinase CK-MB (CK-2) CK-MB (CK-2) Rel Index Troponin I Total Protein 6.3 Albumin 3.3 L Globulin 3.0 Albumin/Globulin Ratio 1.1 Lipase SARS-CoV-2 (PCR) PFSH Medical History Dyslipidemia Hypertension Insomnia Social History household members: caregiver Smoking Status: Former smoker Assessment & Plan Assessment & Plan narrative: 1. Urinary tract infection. Treating empirically initially with ceftriaxone in the emergency room. Based on sensitivity of culture can switch to nitrofurantoin. Culture positive for Staphylococcus epidermidis. 2. White blood count improved to 7.8 this morning. Continue to monitor. 3.Metabolic encephalopathy, acute, present on admission. Seroquel and Ativan as needed. Would be best to for dosing with the Seroquel. Will switch Ativan to oral but Seroquel should be the 1st line of treatment. 4. VTE Prophylaxis: Enoxaparin 40 mg subQ once daily? Bilateral SCDs 5. Patient is admitted to the inpatient service due to the severity of disease, risks of further disease progression and this stay is expected to exceed 2 midnights. 6. FEN: IV fluids: saline lock, diet: heart healthy 7. Consultants? None 8. Dispo: probable return to SNF 9. Code status: DNR/DNI 10. Renal compromise. Patient's GFR is 43 today. This may be his baseline. Renal compromise is stable on this admission. Time Spent With Patient Critical Care time: I spent a total of [] minutes of critical care time on this patient's care today; this time is exclusive of procedural time. Quality VTE Deep Vein Thrombosis/Pulmonary Embolism Present on Admission: No
--- NOTE | 2021-11-05 08:58 | CM.DANOTE ---
Addendum entered by Hellen Ryan R.N. 11/05/21 14:27: Patient's POA here to see patient at the hospital, Jodee, who is also patient's niece. She brought in some advanced directives, nurse, Larissa, made a copy to scan. She also mentioned changing patient's POLST, he would not want to be resusitated, due to his poor quality of life. Nurse will address with hospitalist, to see if POLST can be changed. Jodee is patient's medical and financial POA. Patient was awake, not speaking, but calm. Let her know that Kathy from [facility] is coming tomorrow to see patient at about 0900 to assess for possible discharge back to their facility tomorrow. Jodee indicated, they did not have antibiotic available at the facility, was unable to get from [facility], and he was showing UTI symptoms with falls and confusion, and patient came here. She was able to get patient to take his p.o. antibiotic. Gave her this DC material planner's phone number with any questions, and can update her tomorrow. Addendum entered by Hellen Ryan R.N. 11/05/21 10:56: Discussed patient during team rounds. Hospitalist indicated that he should be switched over to oral antibiotics, may be ready for discharge tomorrow. Called Kathy at [facility] and updated her. She will come and do an assessment tomorrow at 0900 with another nurse, here at the hospital before he goes back to their facility. Patient is sleeping currently, he had been agitated early am, and was given some medication for agitation, and is currently sleeping, He had required a sitter prior. Will monitor closely. Original Note: DCP: Case received, EMR reviewed. Was not able to meet with patient secondary to his confusion, but was able to receive information from nurse, Kathy, at [facility], as well as patient's EMR. DCP assessment completed with information currently available. Patient is an 86 year old male who admitted yesterday evening to the care of the hospitalist team. PCP: Facility provider. Payer: confirmed: Medicare/Medicaid. Patient came to the hospital via ambulance secondary to having increased falls and confusion. He came in via ambulance from [facility] due to multiple falls and altered mental status. According to notes, patient is not a good historian, but not at his current baseline. Patient was admitted for UTI. Patient does have mental health history. Upon admission, patient was agitated, currently sleeping. Jodee is main contact, who is patient's niece, and in notes, was able to provide some of patient's history, he had been to [facility], and [facility]. Spoke to Kathy at [facility] for additional information. Kathy confirmed that patient has been with them for about 5 years. At his baseline, he does use a walker. She mentioned he has an unsteady gait, is a fall risk. She also indicated that at patient's baseline, he is alert and oriented, but loosely confused. He is incontinent of urine, but continent of bowel. He is also independent with meals. P: DCP to continue to follow. Kathy confirmed that she will need to come and see patient before he is readmitted back to their facility, and she works Fri-. Will keep her updated. Patient also has P.T. orders which are pending. Hellen Ryan RN/Administrative Executive Discharge Planning/Care Management CM Discharge Assessment Start: 11/05/21 08:55 Freq: Status: Active Protocol: Document 11/05/21 08:55 (Rec: 11/05/21 08:58 [id number]) Discharge Planning Assessment Assigned Maintenance Mechanic Telephone Hellen Ryan RN/Administrative Executive Advance Directives? Yes Advance Directives on File Yes History Provided By Medical Record Prior Living Arrangements Assisted Living Household Members caregiver Type of transporation used prior to Relies on Others admit Facility Name Admitted From: [facility] Willing to Return to Facility? Yes Independent with ADL's No Is patient alert and oriented? Yes Needs Assistance With Bathing,Grooming,Toileting, Managing Medications,Home Chores / Shopping Caregiver for Another No DME Already Rented / Owned FWW / Walker Barriers to Discharge No Comment [facility] should be able to accept patient back once stable. Discharge Plan Assisted Living Facility Transportation Arrangement Facility Referrals Initiated Other Additional Comment Will see how patient does here in the hospital once UTi is resolved. Comment Did not yet enter patient's room secondary to his agitation and confusion Review Status In Process Next Review Type Continued Stay Review
--- NOTE | 2021-11-05 11:36 | PT.IPNOTE ---
Attempted physical therapy evaluation but pt very sleepy and unable to fully arouse him to participate. Will attempt again later today when pt more alert.
[2021-11-05 11:47] VITALS: PULSE 59; O2SAT 94
[2021-11-05] MEDS: TRIMETH/SULFA 160/800 (DS) TABLET 1 TAB PO ×2 (13:19→21:57)
--- NOTE | 2021-11-05 15:22 | PT.IIE ---
Medical History (Last Reviewed 11/04/21 @ 19:09 by Hermes Garcia DO) Dyslipidemia Hypertension Insomnia Physical Therapy Inpatient Evaluation/Re-Eval M1 PT/OT-IP Prior Functional Status Start: 11/05/21 16:02 Freq: NEEDED Status: Active Protocol: Document 11/05/21 15:22 DLM (Rec: 11/05/21 16:30 DLM [id number]) Medical Review Prior Functional Status Medical History Reviewed Yes Diet/Fluid Consistency Regular Communication WFL, hard of hearing Mobility and Gait ambulates with FWW, his Niece reports he ambulates limited distances, she used a wheelchair the last time she took him somewhere out of his facility Activities of Daily Living and IADL's he needs assist for ADL's Social History Household Members caregiver Living Arrangements Assisted Living Number of Floors (Floors) One Floor Home Equipment Four Wheel Walker Additional Social History Comment His Niece believes he uses a 4WW for gait. He lives at [place] in local intermodal truck driver care. M2 PT-IP Current Condition Start: 11/05/21 16:02 Freq: NEEDED Status: Active Protocol: Document 11/05/21 15:22 DLM (Rec: 11/05/21 16:30 DL [id number]) Physical Therapy Current Condition Current Condition Evaluation Date 11/05/21 Treatment Diagnosis UTI, confusion, fall, Impaired mobility/gait Onset Date 11/04/21 M3 PT-IP Subjective Start: 11/05/21 16:02 Freq: NEEDED Status: Active Protocol: Document 11/05/21 15:22 DLM (Rec: 11/05/21 16:30 DL [id number]) Subjective Physical Therapy Visit Type Type Initial Evaluation Visit Start Time 14:50 Visit Stop Time 15:22 Total Visit Minutes 32 Number of SENIOR ORACLE SOA DEVELOPER Visits 0 Physical Therapy Visit Comments Patient Comments He agreed to get up Patient Goals he did not verbalize, his Niece would like to get him back to [place] M4 PT-IP Mobility and Gait Start: 11/05/21 16:02 Freq: NEEDED Status: Active Protocol: Document 11/05/21 15:22 DLM (Rec: 11/05/21 16:30 DL [id number]) PT-Bed Mobility Assessment Supine to Sit Supine to Sit Moderate Assistance,Maximum Assistance Scooting Scooting to Edge of Bed Minimal Assistance,Moderate Assistance PT-Transfer Assessment Sit to and From Stand Sit to and from Stand Minimal Assistance Equipment Transfer Assistive Device Gait Belt,Front Wheeled Walker Transfers Transfer Destination Chair Transfer Technique Stand Step Pivot Transfer Ability Level of Assist Contact Guard Assistance, Minimal Assistance,Use of Upper Extremities Comments Mobility Comments Pt ambulated to the window and sat on couch. After a seated rest he ambulated to the recliner where he was left up with chair alarm for safety. He is slow turning to approach chair but he does fully turn before sitting. He does not consistently reach his hands back before sitting but he sits with good eccentric control. Gait Assessment Gait Gait Assistance Required: Contact Guard Assist,Minimum Assistance Distance (Feet) 20 Assistive Devices Assistive Device Gait Belt,Front Wheeled Walker Gait Deviations General Gait Pattern Ataxic,Decreased Feet Clearance,Wide Based Gait Factors Limiting Gait Function Factors Limiting Gait Function Decreased Activity Tolerance, Decreased Strength Comments Gait Comments His gait pattern is slow and shuffling/stuttery. He intermittently stops but can restart on his own. He tends to push the FWW too far in front of him and needs physical assist to pull it back in close. He needs extra time to move and does better when not rushed. Stair Climbing Assessment Comments Stair Climbing Comments no stairs in his home environment PT-Balance Assessment Sitting Balance and Reactions Static Sitting Balance Ability Fair Dynamic Sitting Balance Ability Fair Standing Balance and Reactions Static Standing Balance Ability Fair Dynamic Standing Balance Ability Fair Device Used FWW Comments Other Balance Tests/Deviations/Treatment He has post lean with initial : sitting up on edge of bed but this improved with training. M5 PT-IP Objective Assessments Start: 11/05/21 16:02 Freq: NEEDED Status: Active Protocol: Document 11/05/21 15:22 DL (Rec: 11/05/21 16:30 DL [id number]) Orientation Orientation/Cognition Level of Alertness Alert Orientation Name Language Function Ability Hard of Hearing Safety Awareness Decreased Safety Awareness Comments His speech is clear but he does not talk very much. He has hx of dementia. He doesnot answer orientation questions this visit. He responds well to his Niece. He has a flat affect. He answers some simple questions. He did not appear to be aware that he was incontinent of bowel and bladder this visit and denies the need for a toilet. Nursing assisted with changing his depends before leaving pt up in recliner. Gross Range of Motion Upper Extremity ROM Assessment Within Functional Limits Lower Extremity ROM Assessment Within Functional Limits Strength Upper Extremity Strength Assessment Bilaterally Impaired Lower Extremity Strength Assessment Bilaterally Impaired Comments Strength Comments generalized weakness throughout, he can not complete MMT, he is moving all extremities Coordination Assessment Gross Coordination Gross Coordination Impaired Assessment Coordination Comments he has difficulty getting food to his mouth but it improved with repetition, he is left hand dominant, he has difficulty coordinating his movements with the FWW or moving around obstacles, mild tremors Sensation Assessment Sensation Gross Sensation WNL Comments Sensation Comments he denies numbness in feet/ hands Muscle Tone Muscle Tone WNL No Comments Muscle Tone Comments generalized rigidity throughout, mild to moderate M6 PT-IP Treatment Start: 11/05/21 16:02 Freq: NEEDED Status: Active Protocol: Document 11/05/21 15:22 DL (Rec: 11/05/21 16:30 [facility] [id number]) Physical Therapy Treatment Education Education Provided Safety Other Treatments Other Treatment Performed His Niece is present at the start of therapy and encouraged him to participate. She had to leave to go to work before the end of this visit. M7 PT-IP Assessment and Plan Start: 11/05/21 16:02 Freq: NEEDED Status: Active Protocol: Document 11/05/21 15:22 DLM (Rec: 11/05/21 16:30 [facility] [id number]) PT Summary Assessment and Plan Potential Rehabilitation Potential Good Status of Condition at Evaluation Evolving Summary Impairments Strength,Balance,Coordination, Tone,Cognition,Bed Mobility, Transfers,Gait,Activity Tolerance Assessment Summary Sheldon is alert and resting in bed. His Niece is visiting. He his quiet but cooperative and pleasant this visit. He was able to ambulate in his room with the FWW and one person assist. Pt left up in recliner this visit with chair alarm. Recommend he return to his [facility] care facility ( [place]). Goals Bed Mobility Goal Minimal Assistance Transfer Goal Contact Guard Assistance,Front Wheeled Walker Gait Goal Contact Guard Assistance,Front Wheel Walker Gait Distance 100 feet Days to Meet Goals 4 Frequency of Treatment Frequency Of Treatment Once a Day Treatment Plan Physical Therapy Treatment Plan Bed Mobility Training,Transfer Training,Gait Training, Therapeutic Exercise,Balance Retraining,Discharge Planning, Neuromuscular Re-ed Precautions Other Precautions fall risk Recommendations To Nursing Amount of Assist Needed 1 Person Assist Discharge Recommendations PT Discharge Recommendations Home with 07/10 Assist Available Other Discharge Recommendations back to his [facility] care facility Transportation Needs at Discharge Private Vehicle,Wheelchair/ Cabulance
[2021-11-05] MEDS: cefTRIAXone 1,000 MG in SODIUM CHLORIDE 0.9% 100 ML 200 MG IV (16:40)
[2021-11-05 16:59] VITALS: BP 117/65; PULSE 60; RESP 16; TEMP 36.4; O2SAT 95
[2021-11-05 18:00] VITALS: BP 117/65; PULSE 60; RESP 16; TEMP 36.4; O2SAT 95
[2021-11-05] MEDS: MIRTAZAPINE 15 MG TABLET PO (21:56)
[2021-11-05] MEDS: QUETIAPINE 25 MG TABLET 12.5 MG PO (21:56)
[2021-11-05] MEDS: DOCUSATE 100 MG CAPSULE PO (21:56)
[2021-11-05 22:00] VITALS: BP 151/88; PULSE 145; RESP 18; TEMP 36.6; O2SAT 95
[2021-11-06] MEDS: LORazepam 2 MG/ML ORAL SOL 0.5 MG PO ×2 (00:43→11:41)
[2021-11-06 06:00] VITALS: BP 146/68; PULSE 59; RESP 18; TEMP 36.6; O2SAT 95
[2021-11-06 06:32] LABS: Add Manual Diff / Slide Review NO; Basophils Absolute Auto 0 /uL (0-100); Basophils Percent Auto 0.8 % (0-2); Eosinophils Absolute Auto 400 /uL (0-450); Eosinophils Percent Auto 5.6 % (2-4); Hematocrit 35.4 % (41-53); Hemoglobin 12.2 g/dL (13.5-17.5); Lymphocytes Absolute Auto 1400 /uL (1100-4500); Lymphocytes Percent Auto 22.4 % (25-40); Mean Corpuscular HGB Conc 34.5 % (30-36); Mean Corpuscular Hemoglobin 32.2 PG (26-34); Mean Corpuscular Volume 93.3 fL (80-100); Monocytes Absolute Auto 800 /uL (0-900); Monocytes Percent Auto 12.8 % (3-14); Neutrophils Absolute Auto 3700 /uL (1500-7000); Neutrophils Percent Auto 58.4 % (50-75); Platelet Count 225 X10^3/uL (150-400); Red Cell Distribution Width 13.7 % (11.6-14.8); White Blood Cell Count 6.3 X10^3/uL (4.5-11.0)
[2021-11-06 06:36] LABS: Alanine Aminotransferase 22 IU/L (<50); Albumin 3.5 g/dL (3.5-5.0); Albumin Globulin Ratio 1.1 (1.0-2.8); Alkaline Phosphatase 60 U/L (38-126); Aspartate Aminotransferase 23 IU/L (17-59); BUN Creatinine Ratio 21.3 (6-22); Bilirubin Total 0.6 mg/dL (0.2-1.3); Blood Urea Nitrogen 35 mg/dL (9-20); Calcium 8.2 mg/dL (8.4-10.2); Carbon Dioxide 26 mmol/L (22-32); Chloride 105 mmol/L (98-107); Estimated Glomerular Filt Rate 40 mL/min (>60); Globulin 3.1 g/dL (1.7-4.1); Glucose 92 mg/dL (80-110); HEMOLYSIS < 15 (0-50); Magnesium 2.3 mg/dL (1.6-2.3); Potassium 3.9 mmol/L (3.4-5.1); Sodium 139 mmol/L (137-145); Total Protein 6.6 g/dL (6.3-8.2)
[2021-11-06 07:58] VITALS: BP 132/68; PULSE 75; RESP 16; TEMP 36.4; O2SAT 97
--- NOTE | 2021-11-06 09:31 | P.PN_ITS ---
Subjective Subjective Date Patient Seen: 11/06/21 Time Patient Seen: 09:00 Interval history: Patient improved. However is still weaker than what he was at the facility. Currently is not independent. Supervision and cuing with walker. Likely would benefit with a couple days to increase mobility prior to discharge. Patient states that he is somewhat depressed since he does not know if he has a place to go to. Reassured him that his place at the facility is being held for him and this made him happier. Exam Vital Signs (past 8 hours): - 11/06/21 06:00 11/06/21 07:58 Temperature 97.9 F 97.5 F L Pulse Rate 59 L 75 Respiratory Rate 18 16 Blood Pressure 146/68 H 132/68 Pulse Oximetry 95 97 Oxygen Flow Rate 0 Oxygen Delivery Method Room Air Oxygen Flow Rate 0 Narrative Exam Narrative: Patient alert. Oriented to person and place. Appears in no acute distress medical distress. HEENT: Is normocephalic. Trachea is midline. Pupils equal reactive to light. Extraocular movements normal. Cardiovascular: Heart sounds S1 and S2. No extra sounds or murmurs. Periphe ral pulses equal bilaterally. Respiratory: Air entry throughout the lung moore no wheezes or crackles. Gastrointestinal: Bowel sounds normal. Nontender. Skin: No new lesions or rashes. Musculoskeletal: Some weakness with mobility needing standby assist/cueing when walking with walker. Neuro: Oriented to place and person. Normal sensation of extremities. Objective Labs Result Diagrams: 11/06/21 06:09 11/06/21 06:09 Labs: Laboratory Results - last 24 hr 11/06/21 11/06/21 06:09 06:09 WBC 6.3 RBC 3.80 L Hgb 12.2 L Hct 35.4 L MCV 93.3 MCH 32.2 MCHC 34.5 RDW 13.7 Plt Count 225 Neut % (Auto) 58.4 Lymph % (Auto) 22.4 L [place] % (Auto) 12.8 Eos % (Auto) 5.6 H Baso % (Auto) 0.8 Neut # (Auto) 3700 Lymph # (Auto) 1400 [place] # (Auto) 800 Eos # (Auto) 400 Baso # (Auto) 0 Sodium 139 Potassium 3.9 Chloride 105 Carbon Dioxide 26 BUN 35 H Creatinine 1.64 H Estimated GFR 40 L BUN/Creatinine Ratio 21.3 Glucose 92 Calcium 8.2 L Magnesium 2.3 Total Bilirubin 0.6 AST 23 ALT 22 Alkaline Phosphatase 60 Total Protein 6.6 Albumin 3.5 Globulin 3.1 Albumin/Globulin Ratio 1.1 PFSH Medical History Dyslipidemia Hypertension Insomnia Social History household members: caregiver Smoking Status: Former smoker Assessment & Plan Assessment & Plan narrative: 1. Urinary tract infection.? Treating empirically initially with ceftriaxone in the emergency room.? Based on sensitivity of culture can switch to nitrofur antoin.? However concern with nitrofurantoin interacting with other medication and patient was switched to Septra DS. Culture positive for Staphylococcus epidermidis. 2. White blood count improved to 6.3 this morning.? Continue to monitor.? 3.Metabolic encephalopathy, acute, present on admission.? Seroquel and Ativan as needed.? Would be best to for dosing with the Seroquel.? Will switch Ativan to oral but Seroquel should be the 1st line of treatment. Appears to be back at his baseline currently. 4. VTE Prophylaxis: Enoxaparin 40 mg subQ once daily? Bilateral SCDs 5. Patient is admitted to the inpatient service due to the severity of disease, risks of further disease progression and this stay is expected to exceed 2 midnights. Need further improvement in mobility prior to discharge. 6. FEN: IV fluids: saline lock, diet: heart healthy 7. Consultants? None 8. Dispo: probable return to SNF 9. Code status: DNR/DNI 10. Renal compromise.? Patient's GFR is 40 today.? This may be his baseline.? Renal compromise is stable on this admission. Time Spent With Patient Critical Care time: I spent a total of [] minutes of critical care time on this patient's care today; this time is exclusive of procedural time. Quality VTE Deep Vein Thrombosis/Pulmonary Embolism Present on Admission: No
--- NOTE | 2021-11-06 09:38 | CM.DPC ---
Addendum entered by Hellen Ryan R.N. 11/06/21 15:37: August at [facility] had spoken to her DNS, and can accept patient tomorrow, he just needs a booster. Did update Dr. Murillo, and Amber assisted with placing order for Moderna booster, and pharmacy was updated, and nurse, Kandi. Called PASSR rep for [facility], for concerns about some of patient's mental health history, to ensure that PASSR is filled out correctly. Spoke to Katie, she is in charge of [facility] PASSRS [facility] the [facility]. Originally had called Sue Webber, and she does not do [facility]. Katie's number is: [phone]. Spoke to Katie about filling out PASSR. Mentioned to her that patient does have history of being slow, but no mental health diagnosis noted. He is on Sertraline for depression, and Seroquel for sleep. Let her know that patient was agitated when he first came in. She stated to go ahead and complete level 2, on PASSR, and have provider sign. She asked if this DC Calender Inspector knew if patient would be there under 30 days, and let her know, he most likely would, he is going there for short term rehab before going back to [facility]. Called Jodee, patient's POA, and updated her. She is glad that he can go to short term rehab. She is ok with patient having a COVID booster as well. Plan will be for patient to go to [facility] tomorrow. Did complete PASSR as directed, just need provider's signature. Original Note: DCP Con: Kathy from [facility] came to see patient. She indicated, normally, he can transfer with his walker, but seems weaker. She feels that he would benefit with care home. Let her know, secondary to patient's behaviors, may be hard to get him to a skilled facility, due to staffing. [facility] would be the facility, since they are the owned by the same [employer]. Let Kathy know that this DC senior buyer planner will attempt [facility], but if they can't accept patient, she will need to prepare to take patient back. She indicated, they would have to. Can also do home health. Have a message out to August at [facility] to review. P: DCP to continue to follow. Will update Kathy at [facility] if [facility] can possibly accept patient. If not, [facility] will need to take patient back. Hellen Ryan RN/Draw Fire Operator
--- NOTE | 2021-11-06 10:39 | PT-IP ANOTE ---
Checked on pt at 10:35 am and he did not want to get up. Nursing states he has already been up x3 this morning. Will check back later.
[2021-11-06] MEDS: PROPRANOLOL 10 MG TABLET 20 MG PO ×3 (11:40→22:08)
[2021-11-06] MEDS: TRIMETH/SULFA 160/800 (DS) TABLET 1 TAB PO ×2 (11:40→22:08)
[2021-11-06] MEDS: ASPIRIN 325 MG TABLET PO (11:40)
[2021-11-06] MEDS: SERTRALINE 50 MG TABLET PO (11:40)
[2021-11-06] MEDS: ACETAMINOPHEN 325 MG TABLET 650 MG PO (11:40)
[2021-11-06] MEDS: FINASTERIDE 5 MG TABLET PO (11:41)
[2021-11-06] MEDS: ENOXAPARIN 40 MG/0.4 ML SYRINGE SUBCUT (11:41)
[2021-11-06 12:00] VITALS: BP 130/65; PULSE 69; RESP 18; TEMP 36.4; O2SAT 98
--- NOTE | 2021-11-06 12:01 | PT-IP ANOTE ---
Pt refused for the second time in am. Will check back in afternoon.
[2021-11-06] MEDS: DONEPEZIL 5 MG TABLET 10 MG PO (12:07)
[2021-11-06] MEDS: COVID-19 VACC #3, MRNA(MOD) 50 MCG/0.25 ML VIAL IM (17:45)
[2021-11-06 18:00] VITALS: BP 129/68; PULSE 74; RESP 14; TEMP 36.4; O2SAT 98
[2021-11-06] MEDS: QUETIAPINE 25 MG TABLET 12.5 MG PO (22:08)
[2021-11-06] MEDS: SENNOSIDES 8.6 MG TABLET PO (22:08)
[2021-11-06] MEDS: MIRTAZAPINE 15 MG TABLET PO (22:08)
[2021-11-06] MEDS: TRAZODONE 50 MG TABLET PO (22:08)
[2021-11-06] MEDS: LATANOPROST 0.005% OPHTH 2.5 ML 1 DROPS EYE-BOTH (22:10)
[2021-11-07] VITALS: BP 139/79; PULSE 56; RESP 18; TEMP 36.6; O2SAT 94
[2021-11-07] MEDS: LORazepam 2 MG/ML ORAL SOL 0.5 MG PO (02:35)
[2021-11-07 04:00] VITALS: BP 161/68; PULSE 60; RESP 18; TEMP 36.6; O2SAT 97
[2021-11-07 08:44] LABS: Add Manual Diff / Slide Review NO; Basophils Absolute Auto 100 /uL (0-100); Eosinophils Absolute Auto 400 /uL (0-450); Eosinophils Percent Auto 7.3 % (2-4); Hematocrit 36.1 % (41-53); Hemoglobin 12.7 g/dL (13.5-17.5); Lymphocytes Absolute Auto 1200 /uL (1100-4500); Lymphocytes Percent Auto 19.5 % (25-40); Mean Corpuscular HGB Conc 35.1 % (30-36); Mean Corpuscular Hemoglobin 32.5 PG (26-34); Mean Corpuscular Volume 92.6 fL (80-100); Monocytes Absolute Auto 700 /uL (0-900); Monocytes Percent Auto 12.1 % (3-14); Neutrophils Absolute Auto 3700 /uL (1500-7000); Neutrophils Percent Auto 60.1 % (50-75); Platelet Count 248 X10^3/uL (150-400); Red Cell Distribution Width 13.3 % (11.6-14.8); White Blood Cell Count 6.1 X10^3/uL (4.5-11.0)
--- NOTE | 2021-11-07 08:47 | P.DS_ITS ---
History of Present Illness History of Present Illness Date Patient Seen: 11/07/21 Time Patient Seen: 08:15 Chief complaint: uti, lots of falls Narrative: On presentation, unable to obtain a history from the patient as he is agitated and very confused. History based on ED report and review of shelter records. Sheldon Manriquez is an 86 y.o. who reportedly had multiple falls, confusion and was altered.? I was informed that the patient at baseline is conversive and ambulates with a walker.? Per the ED provider the patient was evaluated possibly at the facility for increased confusion and determined to have had a urinary tract infection.? He was prescribed I believe Bactrim, however they were unable to reach the provider for a prescription and he reportedly started his 1st dose today.? Patient takes current medications for dementia, BPH, and dry eye. CT of the head and chest x-ray were both negative for any acute process.? He is afebrile, blood pressure 147/89, heart rate 113, respiratory rate 18, oxygen saturation of 98% on room air he weighs 79 kg with a BMI of 24.? Is a mildly elevated white count of 11.1 and a left shift, mildly anemic with a hemoglobin of 12.3 and 35.4, platelet count of 226, neutrophil count is 9000, creatinine is 1.47 with a BUN of 36 and a EGFR 46, glucose 148 calcium 8.1 liver enzymes within normal limits, albumin is slightly low at 3.4 and COVID-19 PCR is negative. Advanced care discussion with severiano Daniel. Stated she and patient and patient's nephew Alon Stokes (incorrectly named Alon Sweet). Stated patient had a seizure history and was hospitalized at [facility] during his youth and underwent ECT therapy and was never the same. 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 Stated he was kicked out of an independent senor living facility in [facility] and got him placed at [place]. Stated patient has had bouts of confusion and hallucinations, particularly when he has UTIs. Discharge Providers Provider Date of admission: 11/04/21 19:15 Discharge Date: 11/07/21 Primary care physician: Doctor Tatum MD Consults: 11/04/21 20:02 Consult to Physical Therapy Evaluate & Treat Comment: Frequent falls Physician Instructions: Evaluate and Treat 11/04/21 21:30 Consult to Pharmacy Stat Comment: need to access IV Ativan injectable orders 11/04/21 22:39 Consult to [facility] - Poultry Pathologist Routine Comment: Needs POLST updated, carolinemaurice coming in during daytim Discharge provider: Carol Radford MD Summary Hospital Course Discharge Diagnosis: Urinary tract infection with associated increased confusion and falls Hospital Course: Patient presented with increased confusion and falls. Has had problems in the past with urinary tract infection causing confusion. Blood in urine cultures w ere obtained. Blood cultures were negative. Urine culture was positive for Staphylococcus epidermidis. Patient was initially started on ceftriaxone intravenously however based on sensitivity the patient was switched to Septra DS. With treatment of the urinary tract infections patient's confusion improved. However he remained with decreased mobility needing standby assistance and cuing to walk with a walker. His baseline is that he walks independently with a walker. Falls prior to presentation, the CT of the head was completed which showed no acute findings. Agitation and confusion hospital stay and at the time of discharge was well controlled with lorazepam p.o. 0.5 q.4h as needed, quetiapine at night, and sertraline daily and trazodone at night. Due to disc decreased mobility the patient is being sent to [facility] or further rehabilitation prior to returning to his place of residence which is [place]. Status at Discharge Cognitive/behavioral status at discharge: at baseline, confused Functional status at discharge: uses cane/walker Overall status at discharge: patient is progressing back to baseline Time Spent with Patient Time spent: Greater than 30 minutes Exam Vital Signs (past 8 hours): - 11/07/21 04:00 Temperature 97.9 F Pulse Rate 60 Respiratory Rate 18 Blood Pressure 161/68 H Pulse Oximetry 97 Oxygen Flow Rate 0 Oxygen Delivery Method Room Air Oxygen Flow Rate 0 Narrative Exam Narrative: Patient appears in no acute medical distress. Patient is confused but eating his breakfast well. HEENT: Pupils equal reactive to light. Extraocular movements normal. Cardiovascular: Heart sounds S1 and S2 no extra sounds or murmurs. Respiratory: Adequate air entry throughout the lung moore no wheezes or crackles. Gastrointestinal: Abdomen is soft. Nontender. Bowel sounds normal. Musculoskeletal: Able to move all extremities volitionally. Skin: No new lesions or rashes. Psych: Confused. Not combative or agitated. Objective Labs Result Diagrams: 11/07/21 05:00 11/06/21 06:09 Labs: Laboratory Results - last 24 hr 11/07/21 05:00 WBC 6.1 RBC 3.90 L Hgb 12.7 L Hct 36.1 L MCV 92.6 MCH 32.5 MCHC 35.1 RDW 13.3 Plt Count 248 Neut % (Auto) 60.1 Lymph % (Auto) 19.5 L Sibley % (Auto) 12.1 Eos % (Auto) 7.3 H Baso % (Auto) 1.0 Neut # (Auto) 3700 Lymph # (Auto) 1200 [place]y # (Auto) 700 Eos # (Auto) 400 Baso # (Auto) 100 PFSH Medical History Dyslipidemia Hypertension Insomnia Social History household members: caregiver Smoking Status: Former smoker Discharge Assessment & Plan Assessment and Plan Assessment: Ready for discharge to rehabilitation. Plan of Treatment: Discharge to [facility] Discharge Plan Discharge Plan Patient Disposition: SNF Transfer to: [facility] Discharge orders & Medications Prescriptions: New lorazepam [Lorazepam Intensol] 2 mg/mL Concentrate 0.5 mg PO Q4HR PRN (Reason: Anxiety) Qty: 15 0RF acetaminophen 325 mg Tablet 650 mg PO Q6HR PRN (Reason: Fever/Mild Pain (1-3)) Qty: 30 0RF propranolol 10 mg Tablet 20 mg PO TID Qty: 90 0RF quetiapine 25 mg Tablet 12.5 mg PO BEDTIME 30 Days Qty: 30 0RF sulfamethoxazole-trimethoprim 800-160 mg Tablet 1 tab PO BID Qty: 10 0RF sennosides [senna] 8.6 mg Tablet 8.6 mg PO BEDTIME 30 Days Qty: 30 0RF Continued mirtazapine 7.5 mg Tablet 15 mg PO BEDTIME acetaminophen [Tylenol] 325 mg Capsule 650 mg PO Q4H PRN (Reason: Pain (Scale Score 1-3)) latanoprost 0.005 % Drops 1 drp OPHTHALMIC (EYE) DAILY trazodone 50 mg Tablet 50 mg PO BEDTIME aspirin 325 mg Tablet 325 mg PO DAILY donepezil 10 mg Tablet 10 mg PO DAILY loperamide 2 mg Tablet 2 mg PO TID PRN (Reason: Diarrhea) Rx Instructions: administer after each loose stool until symptoms controlled; do not exceed 8 mg per 24 hrs magnesium hydroxide [Milk of Magnesia] 400 mg/5 mL Suspension 1,200 mg PO BEDTIME PRN (Reason: Constipation) artificial tears(hypromellose) 0.4 % Drops 1 drp OPHTHALMIC (EYE) PRN PRN (Reason: Dry Eyes) sertraline 50 mg Tablet 50 mg PO DAILY docusate sodium 100 mg Tablet 100 mg PO BID finasteride 5 mg Tablet 5 mg PO DAILY Discontinued propranolol 60 mg Capsule,Extended Release 24 Hr 60 mg PO DAILY Follow up/Referrals: Tatum,Doctor, [Primary Care Provider] - Diet/Activity/Treatments Diet: Diet as Tolerated Special Rehabilitation Services Reason for rehabilitation: Recovery r/t decondition Rehab type: Physical therapy, Occupational therapy and Home health Visit Report/Discharge Packet Instructions: DI for Urinary Tract Infection (UTI), DI for Muscle Weakness, DI for Encephalopathy Discharge Data Primary Care Provider: Doctor Tatum Quality VTE Deep Vein Thrombosis/Pulmonary Embolism Present on Admission: No
[2021-11-07 09:05] LABS: Alanine Aminotransferase 27 IU/L (<50); Albumin 3.8 g/dL (3.5-5.0); Albumin Globulin Ratio 1.2 (1.0-2.8); Alkaline Phosphatase 66 U/L (38-126); Aspartate Aminotransferase 30 IU/L (17-59); BUN Creatinine Ratio 22.2 (6-22); Bilirubin Total 0.5 mg/dL (0.2-1.3); Blood Urea Nitrogen 32 mg/dL (9-20); Calcium 8.5 mg/dL (8.4-10.2); Carbon Dioxide 26 mmol/L (22-32); Chloride 106 mmol/L (98-107); Estimated Glomerular Filt Rate 47 mL/min (>60); Globulin 3.2 g/dL (1.7-4.1); Glucose 89 mg/dL (80-110); HEMOLYSIS < 15 (0-50); Potassium 4.1 mmol/L (3.4-5.1); Sodium 139 mmol/L (137-145)
[2021-11-07 09:19] LABS: COVID19 -Nasal RAPID Negative (Negative)
--- NOTE | 2021-11-07 10:43 | CM.DPC ---
DCP Cont: Pt is to discharge today @ 1130 to [facility] via [facility] transportation. COVID swab ordered and resulted as negative. All documentation and med list have been faxed. PASRR completed and faxed. No other needs at this time. Cici Clay, RN/DCP
[2021-11-07] MEDS: DONEPEZIL 5 MG TABLET 10 MG PO (10:45)
[2021-11-07] MEDS: ASPIRIN 325 MG TABLET PO (10:45)
[2021-11-07] MEDS: FINASTERIDE 5 MG TABLET PO (10:45)
[2021-11-07] MEDS: ENOXAPARIN 40 MG/0.4 ML SYRINGE SUBCUT (10:46)
[2021-11-07] MEDS: TRIMETH/SULFA 160/800 (DS) TABLET 1 TAB PO (10:46)
[2021-11-07] MEDS: SERTRALINE 50 MG TABLET PO (10:46)
[2021-11-07] MEDS: PROPRANOLOL 10 MG TABLET 20 MG PO (10:46)
[2021-11-07 10:52] LABS: Magnesium 2.3 mg/dL (1.6-2.3)
[2021-11-07 11:00] VITALS: BP 134/72; PULSE 64; RESP 22; O2SAT 97
--- NOTE | 2021-11-07 11:52 | PC.NURSE ---
Transfer: Report called to Rick admitting nurse at facility. Reviewed hospital course, pt's baseline mentation is being disoriented. Knows only self, most of the time knows he is at the hospital, but disoriented to everything else. No skin issues. Questions answered. Pt transfered to facility via their van.
== END 2021-11-07 11:50 | DRG 689 ==
LOC: ED 19:13 → AC 20:41
PROVIDERS: Neuromusculoskeletal Medicine, Sports Medicine; Admitting Provider Nurse Practitioner Family; Emergency Provider Emergency Medicine; Referring Provider Emergency Medicine; Visit Provider Nurse Practitioner Family
DX: N39.0 Urinary tract infection, site not specified (principal); G93.41 Metabolic encephalopathy; R44.3 Hallucinations, unspecified; Z66 Do not resuscitate; Z20.822 Contact with and (suspected) exposure to COVID-19; Z87.891 Personal history of nicotine dependence; Z23 Encounter for immunization; R30.0 Dysuria; R39.15 Urgency of urination; R29.6 Repeated falls
CPT/HCPCS: 0013A; 36415; 70450; 71045; 80053; 81001; 82550; 82553; 83690; 83735; 84484; 85025; 87040; 87077; 87086; 87186; 87635; 91301; 93005; 96365; 97162; 99284; C9803; J0696; J1650; J2060

== ENCOUNTER → 2021-12-27 18:33 | Outpatient (ROUT) | payer MEDICARE, MEDICAID, SELFPAY ==
[2021-11-04 23:48] VITALS: BMI 23.6
[2021-12-27 18:53] LABS: Appearance Urine UA CLOUDY; Bilirubin Urine UA NEGATIVE (NEGATIVE); Color Urine UA YELLOW; Glucose Urine UA NEGATIVE (Negative); Ketones Urine UA NEGATIVE (NEGATIVE); Leukocyte Esterase Urine UA 3+ (NEGATIVE); Nitrite Urine UA POSITIVE (Negative); Occult Blood Urine UA 3+ (Negative); Protein Urine UA TRACE (Negative); Specific Gravity Urine UA 1.015 (1.000-1.035); Urobilinogen Urine UA 0.2 E.U./dL (0.2)
[2021-12-27 19:00] LABS: Bacteria Urine None Seen; Culture Indicated Urine Specimen Cultured; RBC Urine 5-10/HPF (0-5/HPF); Squamous Epithelial Cell Urine 1-5 /HPF (0-5/HPF); WBC Urine >100/HPF (0-5/HPF)
== END ==
PROVIDERS: Visit Provider Nurse Practitioner Family
DX: R41.0 Disorientation, unspecified (principal); R29.6 Repeated falls
CPT/HCPCS: 81001; 87077; 87086; 87186

== ENCOUNTER → 2022-01-15 18:44 | Outpatient (ROUT) | payer MEDICARE, MEDICAID, SELFPAY ==
[2021-11-04 23:48] VITALS: BMI 23.6
[2022-01-15 18:56] LABS: Bilirubin Urine UA NEGATIVE (NEGATIVE); Color Urine UA YELLOW; Glucose Urine UA NEGATIVE (Negative); Ketones Urine UA NEGATIVE (NEGATIVE); Leukocyte Esterase Urine UA 2+ (NEGATIVE); Nitrite Urine UA NEGATIVE (Negative); Occult Blood Urine UA 3+ (Negative); Protein Urine UA 2+ (Negative); Urobilinogen Urine UA 0.2 E.U./dL (0.2)
[2022-01-15 19:09] LABS: Appearance Urine UA CLOUDY
[2022-01-15 19:18] LABS: Bacteria Urine Many (>30); Culture Indicated Urine Specimen Cultured; RBC Urine 10-30/HPF (0-5/HPF); Squamous Epithelial Cell Urine 1-5 /HPF (0-5/HPF); Urine Comments WBC CLUMPS; WBC Urine >100/HPF (0-5/HPF)
== END ==
PROVIDERS: Visit Provider Nurse Practitioner Family
DX: R30.0 Dysuria (principal); R35.0 Frequency of micturition; R39.15 Urgency of urination
CPT/HCPCS: 81001; 87077; 87086; 87186

== ENCOUNTER → 2022-01-22 07:32 | Outpatient (ROUT) | payer MEDICARE, MEDICAID, SELFPAY ==
[2021-11-04 23:48] VITALS: BMI 23.6
[2022-01-22 08:44] LABS: Add Manual Diff / Slide Review NO; Basophils Absolute Auto 0 /uL (0-100); Basophils Percent Auto 0.8 % (0-2); Eosinophils Absolute Auto 300 /uL (0-450); Eosinophils Percent Auto 5.2 % (2-4); Hematocrit 37.9 % (41-53); Hemoglobin 12.8 g/dL (13.5-17.5); Lymphocytes Absolute Auto 1000 /uL (1100-4500); Lymphocytes Percent Auto 20.4 % (25-40); Mean Corpuscular HGB Conc 33.8 % (30-36); Mean Corpuscular Hemoglobin 31.6 PG (26-34); Mean Corpuscular Volume 93.4 fL (80-100); Monocytes Absolute Auto 600 /uL (0-900); Monocytes Percent Auto 12.3 % (3-14); Neutrophils Absolute Auto 3100 /uL (1500-7000); Neutrophils Percent Auto 61.3 % (50-75); Platelet Count 242 X10^3/uL (150-400); Red Blood Cell Count 4.05 X10^6/uL (4.5-5.9); Red Cell Distribution Width 14.5 % (11.6-14.8); White Blood Cell Count 5.1 X10^3/uL (4.5-11.0)
[2022-01-22 09:19] LABS: BUN Creatinine Ratio 24.7 (6-22); Blood Urea Nitrogen 39 mg/dL (9-20); Calcium 8.5 mg/dL (8.4-10.2); Carbon Dioxide 27 mmol/L (22-32); Chloride 106 mmol/L (98-107); Estimated Glomerular Filt Rate 42 mL/min (>60); Glucose 90 mg/dL (80-110); HEMOLYSIS < 15 (0-50); Potassium 4.5 mmol/L (3.4-5.1); Sodium 141 mmol/L (137-145)
== END ==
PROVIDERS: Visit Provider Nurse Practitioner Family
DX: R31.9 Hematuria, unspecified (principal); N18.9 Chronic kidney disease, unspecified
CPT/HCPCS: 36415; 80048; 85025

== ENCOUNTER 2022-02-01 10:27 | Emergency (ER) | payer MEDICARE, MEDICAID, SELFPAY ==
[2021-11-04 23:48] VITALS: BMI 23.6
[2022-02-01 10:36] VITALS: BP 186/84; PULSE 50; RESP 12; TEMP 36.2; O2SAT 97
--- NOTE | 2022-02-01 12:47 | ED_ITS ---
HPI - Recheck/Abnormal Lab/Rx <Ledy Jones [facility] - Last Filed: 02/01/22 13:58> General Chief Complaint: Recheck/Abnormal Lab/Rx Stated Complaint: Groin mass, now reduced Time Seen by Provider: 02/01/22 12:05 Source: EMS Mode of arrival: EMS History of Present Illness HPI narrative: This is 86-year-old male who presents to the emergency department via EMS complaining of right inguinal pain this morning, emesis x1 this morning, and urinary urgency, frequency, and suprapubic pressure. He denies any urinary retention, any weakness, fever, chills, cough, headache, or other symptom. He states that he does not have any testicular or scrotal pain, he endorses right- sided flank pain with palpation. Patient has a history of CKD, with baseline creatinine of 1.4 urinary tract infections with most recent 01/15/2022 which grew staph epidermis and was pansensitive. Patient has a history of hypertension, hyperlipidemia, unknown arrhythmia and lives at a local [facility] facility.. Related Data Home Medications Medication Instructions Recorded Confirmed acetaminophen 325 mg capsule 650 mg PO Q4H PRN Pain (Scale 01/01/18 11/04/21 (Tylenol) Score 1-3) mirtazapine 7.5 mg tablet 15 mg PO BEDTIME 01/01/18 11/04/21 artificial tears(hypromellose) 0.4 1 drp ophthalmic (eye) PRN PRN Dry 11/04/21 11/04/21 % eye drops Eyes aspirin 325 mg tablet 325 mg PO DAILY 11/04/21 11/04/21 docusate sodium 100 mg tablet 100 mg PO BID 11/04/21 11/04/21 donepezil 10 mg tablet 10 mg PO DAILY 11/04/21 11/04/21 finasteride 5 mg tablet 5 mg PO DAILY 11/04/21 11/04/21 latanoprost 0.005 % eye drops 1 drp ophthalmic (eye) DAILY 11/04/21 11/04/21 loperamide 2 mg tablet 2 mg PO TID PRN Diarrhea 11/04/21 11/04/21 magnesium hydroxide 400 mg/5 mL 1,200 mg PO BEDTIME PRN 11/04/21 11/04/21 oral suspension (Milk of Magnesia) Constipation sertraline 50 mg tablet 50 mg PO DAILY 11/04/21 11/04/21 trazodone 50 mg tablet 50 mg PO BEDTIME 11/04/21 11/04/21 Previous Rx's Medication Instructions Recorded acetaminophen 325 mg tablet 650 mg PO Q6HR PRN Fever/Mild Pain 11/07/21 (1-3) #30 tabs lorazepam 2 mg/mL oral concentrate 0.5 mg (0.25 mL) PO Q4HR PRN 11/07/21 (Lorazepam Intensol) Anxiety #15 mL propranolol 10 mg tablet 20 mg PO TID #90 tabs 11/07/21 sulfamethoxazole 800 1 tab PO BID #10 tabs 11/07/21 mg-trimethoprim 160 mg tablet Allergies Allergy/AdvReac Type Severity Reaction Status Date / Time No Known Drug Allergies Allergy Verified 02/01/22 10:39 Review of Systems <HECTOR Ahuja - Last Filed: 02/01/22 13:58> Review of Systems Narrative: Review of systems is negative for acute abnormalities unless otherwise noted in HPI Patient History <HECTOR Ahuja - Last Filed: 02/01/22 13:58> Medical History Dyslipidemia Hypertension Insomnia Social History household members: caregiver Smoking Status: Former smoker Smoking Status: Former smoker alcohol intake frequency: other Alcohol type: beer Substance Use Type: does not use Exam <HECTOR Ahuja - Last Filed: 02/01/22 13:58> Narrative Exam Narrative: Reviewed vitals signs and nursing notes. General: cooperative, comfortable, in no acute distress, well groomed, elderly and weak at baseline HEENT: symmetrical facial expressions, moist mucous membranes Cardiovascular: regular rate and rhythm, no peripheral edema, warm extremities Respiratory: normal effort, able to speak in complete sentences, without whe ezing, stridor, or abnormal breath sounds. No retractions or tachypnea. GI: abdomen soft, nontender to palpation, suprapubic region without fullness or palpable bladder, no incontinence, patient is wearing a depends, no palpable hernia, patient does have right-sided flank pain with palpation, abdomen is nondistended, no masses, no palpable hernias, without exquisite tenderness MSK: moves all extremities, neurovascularly intact, no weakness, normal tone Skin: brisk capillary refill, without pallor or erythema Neuro: normal speech and cognition, A&O x3, ambulatory, clear speech, hard of hearing Psych: mental status is grossly normal, congruent mood, normal affect, pleasant and cooperative Initial Vital Signs Initial Vital Signs: Vital Signs Temperature 97.1 F L 02/01/22 10:36 Pulse Rate 50 L 02/01/22 10:36 Respiratory Rate 12 02/01/22 10:36 Blood Pressure 186/84 H 02/01/22 10:36 Pulse Oximetry 97 02/01/22 10:36 Oxygen Delivery Method 02/01/22 10:36 <Olivia Gamez DO - Last Filed: 02/15/22 10:57> Initial Vital Signs Initial Vital Signs: Vital Signs Temperature 97.1 F L 02/01/22 10:36 Pulse Rate 50 L 02/01/22 10:36 Respiratory Rate 12 02/01/22 10:36 Blood Pressure 186/84 H 02/01/22 10:36 Pulse Oximetry 97 02/01/22 10:36 Oxygen Delivery Method 02/01/22 10:36 Course <HECTOR Ahuja - Last Filed: 02/01/22 13:58> Orders Ordered: Discontinued Medications Acetaminophen (Acetaminophen 325 Mg Tablet) 650 mg PO NOW ONE Stop: 02/01/22 12:47 Last Admin: 02/01/22 13:13 Dose: 650 mg Documented By: TANYA Cefuroxime Axetil (Cefuroxime 250 Mg Tablet) 500 mg PO NOW ONE Stop: 02/01/22 13:00 Last Admin: 02/01/22 13:14 Dose: 500 mg Documented By: TANYA Ondansetron HCl (Ondansetron 4 Mg Odt) 4 mg SL NOW ONE Stop: 02/01/22 12:47 Last Admin: 02/01/22 13:14 Dose: 4 mg Documented By: TANYA Phenazopyridine HCl (Phenazopyridine 100 Mg Tablet) 100 mg PO NOW ONE Stop: 02/01/22 13:00 Last Admin: 02/01/22 13:14 Dose: 100 mg Documented By: TANYA Vital Signs Vital signs: Vital Signs - 8 hr 02/01/22 10:36 Temperature 97.1 F L Pulse Rate 50 L Respiratory Rate 12 Blood Pressure 186/84 H Pulse Oximetry 97 Oxygen Delivery Method Room Air <Olivia Gamez DO - Last Filed: 02/15/22 10:57> Orders Ordered: Discontinued Medications Acetaminophen (Acetaminophen 325 Mg Tablet) 650 mg PO NOW ONE Stop: 02/01/22 12:47 Last Admin: 02/01/22 13:13 Dose: 650 mg Documented By: TANYA Cefuroxime Axetil (Cefuroxime 250 Mg Tablet) 500 mg PO NOW ONE Stop: 02/01/22 13:00 Last Admin: 02/01/22 13:14 Dose: 500 mg Documented By: TANYA Ondansetron HCl (Ondansetron 4 Mg Odt) 4 mg SL NOW ONE Stop: 02/01/22 12:47 Last Admin: 02/01/22 13:14 Dose: 4 mg Documented By: TANYA Phenazopyridine HCl (Phenazopyridine 100 Mg Tablet) 100 mg PO NOW ONE Stop: 02/01/22 13:00 Last Admin: 02/01/22 13:14 Dose: 100 mg Documented By: TANYA Vital Signs Vital signs: Vital Signs - 8 hr 02/01/22 10:36 Temperature 97.1 F L Pulse Rate 50 L Respiratory Rate 12 Blood Pressure 186/84 H Pulse Oximetry 97 Oxygen Delivery Method Room Air MDM - Recheck/Abnormal Lab/Rx <HECTOR Ahuja - Last Filed: 02/01/22 13:58> Lab Data Lab results narrative: SPEC #: [id number] JOSELINE: 01/15/22 STATUS: COMP REQ #: [id number] SPDESC: RECD: 01/15/[address]: Celeste Orr SOURCE: UA Reflex ENTR: 01/15/[address]: FAX TO:[phone] ORDERED: URINE CULTURE Procedure Result Verified Site Urine Culture Final 01/18/22718 Organism 1 Staphylococcus epidermidis [place] Count >100,000 CFU/ml Action to follow No Further Workup 1. Staphylococcus epidermidis M.I.C. RX --------- --- * Daptomycin 0.5 S * Vancomycin 1 S * Ciprofloxacin <=0.5 S * Doxycycline <=0.5 S * Gentamicin <=0.5 S * Levofloxacin <=0.12 S * Linezolid 1 S * Moxifloxacin <=0.25 S * Nitrofurantoin <=16 S * Oxacillin Luis Armando <=0.25 S * Rifampin <=0.5 S * Tetracycline <=1 S * Trimethoprim/Sulfamethoxazole <=10 S Labs: Lab Results 02/01/22 Range/Units 13:29 Urine RBC 1-5/hpf D (0-5/HPF) Urine WBC 5-10/hpf H (0-5/HPF) Ur Squamous Epith Cells 1-5 /hpf (0-5/HPF) Urine Bacteria None seen (None) Ur Culture Indicated? Specimen cultured Urine Dip Bedside Urine Glucose Negative Bedside Urine Bilirubin - Negative Bedside Urine Ketone - Negative Urine Specific [place] 1.025 Bedside Urine Occult Blood +/- Bedside Urine pH 6.0 Bedside Urine Protein - Negative Bedside Urine Urobilinogen - Negative MDM Narrative Medical decision making narrative: This is a pleasant 86-year-old gentleman who presents to the emergency department with recurrent UTI, he was treated on 01/15/2022 for a bladder infection,, treated with Bactrim on 11/07/2021 for bladder infection but I have not seen any notes from Urology. Patient lives at a [facility] facility. Today his urine dip was negative however patient had right-sided inguinal pain without palpable hernia as the nurses had described that he had a hernia which was pushed back in, I did not find anything like this on my exam, he did however have tenderness to his right flank with my palpation, he was without fever, altered mentation beyond baseline, chills abnormal vital signs or in distress. His urine shows wbc's and was sent for culture, this time I prescribed for him cefuroxime as his prior urine culture grew staph epidermis with full susceptibilities. Due to local resistance to Bactrim, opted to a newer generation cephalosporin. Discussed this with the patient and he states understanding, he was given a BLS transport back home. He was given Tylenol in the emergency department with cefuroxime and Pyridium given for his symptoms. He stated that he felt better and tolerated p.o. fluids. Patient is appropriate and amenable to discharge home. Vital signs are stable on repeat examination is unremarkable. Patient has been informed of results. Patient has been given strict return to ER precautions for any new or worsening symptoms. Patient understands to follow up closely with outpatient providers as instructed. Patient understands plan and agrees to discharge home. All questions and concerns answered at this time. <Olivia Gamez, - Last Filed: 02/15/22 10:57> Lab Data Labs: Lab Results 02/01/22 Range/Units 13:29 Urine RBC 1-5/hpf D (0-5/HPF) Urine WBC 5-10/hpf H (0-5/HPF) Ur Squamous Epith Cells 1-5 /hpf (0-5/HPF) Urine Bacteria None seen (None) Ur Culture Indicated? Specimen cultured Urine Dip Bedside Urine Glucose Negative Bedside Urine Bilirubin - Negative Bedside Urine Ketone - Negative Urine Specific [place] 1.025 Bedside Urine Occult Blood +/- Bedside Urine pH 6.0 Bedside Urine Protein - Negative Bedside Urine Urobilinogen - Negative Discharge Plan Departure Patient Disposition: Home Clinical Impression: Recurrent UTI Instructions: Urinary Tract Infection Activity Restrictions/Additional Instructions: *You have been diagnosed with a recurrent bladder infection. I am concerned that this keeps coming, please follow-up with Dr. Patel, the urologist for a evaluation of your recurrent urinary tract infections. Please take this antibiotic for the next 10 days, return to the emergency department for worsening pain, difficulty voiding, or nausea with vomiting. Please use Tylenol as needed for pain, drink plenty of water throughout the day as it is easy to become dehydrated. I hope you feel better soon. Please call Dr. Patel's office and set up a follow-up appointment. *What to do: *Please continue to take your regular medications as directed. x New medication prescriptions sent to your pharmacy: [[facility]] [ ] New medication written as a paper prescription [ ] No new medications given *Please follow up with your primary care provider in 2-3 days, call for an appointment. Let them know you were seen in the Emergency Department and that we asked that you be seen for follow-up. We will electronically transmit a record of today's note if your PCP is in our system *If you do not have a primary care provider please contact [phone] to establish care with one of the [facility] primary care providers. *Return to Emergency Department if you should have any new, worsening, or concerning symptoms, such as [fever greater than 101F, chills, worsening pain, persistent vomiting or other bothersome symptoms]. Prescriptions: No Action mirtazapine 7.5 mg Tablet 15 mg PO BEDTIME acetaminophen [Tylenol] 325 mg Capsule 650 mg PO Q4H PRN (Reason: Pain (Scale Score 1-3)) latanoprost 0.005 % Drops 1 drp OPHTHALMIC (EYE) DAILY trazodone 50 mg Tablet 50 mg PO BEDTIME aspirin 325 mg Tablet 325 mg PO DAILY donepezil 10 mg Tablet 10 mg PO DAILY loperamide 2 mg Tablet 2 mg PO TID PRN (Reason: Diarrhea) Rx Instructions: administer after each loose stool until symptoms controlled; do not exceed 8 mg per 24 hrs magnesium hydroxide [Milk of Magnesia] 400 mg/5 mL Suspension 1,200 mg PO BEDTIME PRN (Reason: Constipation) artificial tears(hypromellose) 0.4 % Drops 1 drp OPHTHALMIC (EYE) PRN PRN (Reason: Dry Eyes) sertraline 50 mg Tablet 50 mg PO DAILY docusate sodium 100 mg Tablet 100 mg PO BID finasteride 5 mg Tablet 5 mg PO DAILY acetaminophen 325 mg Tablet 650 mg PO Q6HR PRN (Reason: Fever/Mild Pain (1-3)) Qty: 30 0RF sulfamethoxazole-trimethoprim 800-160 mg Tablet 1 tab PO BID Qty: 10 0RF propranolol 10 mg Tablet 20 mg PO TID Qty: 90 0RF lorazepam [Lorazepam Intensol] 2 mg/mL Concentrate 0.5 mg PO Q4HR PRN (Reason: Anxiety) Qty: 15 0RF Referrals: Elver Patel MD [Physician] - 3-5 days Visit Report Forms: Patient Portal/API <Olivia Gamez DO - Last Filed: 02/15/22 10:57> Cosign ED Attending Cosconorature Attestation: I was immediately available in the department for consultation. Documentation has been reviewed.
[2022-02-01] MEDS: ACETAMINOPHEN 325 MG TABLET 650 MG PO (13:13)
[2022-02-01] MEDS: ONDANSETRON 4 MG ODT SL (13:14)
[2022-02-01] MEDS: PHENAZOPYRIDINE 100 MG TABLET PO (13:14)
[2022-02-01] MEDS: cefUROXime 250 MG TABLET 500 MG PO (13:14)
[2022-02-01 13:49] LABS: Bacteria Urine None Seen; Culture Indicated Urine Specimen Cultured; RBC Urine 1-5/HPF (0-5/HPF); Squamous Epithelial Cell Urine 1-5 /HPF (0-5/HPF); WBC Urine 5-10/HPF (0-5/HPF)
--- NOTE | 2022-02-01 14:15 | PC.NURSE ---
Left two messages with [facility] @1130 and 1400 for transport home. No return call, S transport set up for supervisor picking crew with [facility] [id number]
[2022-02-01 14:55] VITALS: BP 128/78; PULSE 54; RESP 18; TEMP 36.7; O2SAT 98
== END 2022-02-01 14:56 | disposition home or self-care (01) ==
PROVIDERS: Emergency Provider Nurse Practitioner Critical Care Medicine
DX: N39.0 Urinary tract infection, site not specified (principal)
CPT/HCPCS: 81003; 81015; 87086; 99283

== ENCOUNTER → 2022-02-25 18:44 | Outpatient (ROUT) | payer MEDICARE, MEDICAID, SELFPAY ==
[2021-11-04 23:48] VITALS: BMI 23.6
[2022-02-25 18:50] LABS: Appearance Urine UA CLEAR; Bilirubin Urine UA NEGATIVE (NEGATIVE); Color Urine UA YELLOW; Glucose Urine UA NEGATIVE (Negative); Ketones Urine UA NEGATIVE (NEGATIVE); Leukocyte Esterase Urine UA 1+ (NEGATIVE); Nitrite Urine UA NEGATIVE (Negative); Occult Blood Urine UA 3+ (Negative); Protein Urine UA 1+ (Negative); Specific Gravity Urine UA 1.025 (1.000-1.035); Urobilinogen Urine UA 0.2 E.U./dL (0.2)
[2022-02-25 19:04] LABS: RBC Urine 5-10/HPF (0-5/HPF); WBC Urine 10-30/HPF (0-5/HPF)
[2022-02-25 19:05] LABS: Bacteria Urine Moderate (10-30); Culture Indicated Urine Specimen Cultured; Squamous Epithelial Cell Urine 5-10 /HPF (0-5/HPF)
== END ==
PROVIDERS: Visit Provider Nurse Practitioner Gerontology
DX: N39.0 Urinary tract infection, site not specified (principal)
CPT/HCPCS: 81001; 87077; 87086; 87186

== ENCOUNTER → 2022-07-04 09:17 | Outpatient (ROUT) | payer MEDICARE, MEDICAID, SELFPAY ==
[2021-11-04 23:48] VITALS: BMI 23.6
[2022-07-04 09:25] LABS: Appearance Urine UA CLEAR; Bilirubin Urine UA NEGATIVE (NEGATIVE); Color Urine UA YELLOW; Glucose Urine UA NEGATIVE (Negative); Ketones Urine UA NEGATIVE (NEGATIVE); Leukocyte Esterase Urine UA NEGATIVE (NEGATIVE); Nitrite Urine UA NEGATIVE (Negative); Occult Blood Urine UA NEGATIVE (Negative); Protein Urine UA NEGATIVE (Negative); Specific Gravity Urine UA 1.025 (1.000-1.035); Urobilinogen Urine UA 0.2 E.U./dL (0.2); pH Urine UA 5.5 (4.5-8.0)
[2022-07-04 09:32] LABS: RBC Urine None Seen (0-5/HPF); WBC Urine None Seen (0-5/HPF)
[2022-07-04 09:33] LABS: Bacteria Urine None Seen; Culture Indicated Urine Cult Not Indicated; Urine Comments Microscopic Normal
== END ==
PROVIDERS: Visit Provider Nurse Practitioner Gerontology
DX: R33.9 Retention of urine, unspecified (principal); R29.6 Repeated falls; R41.0 Disorientation, unspecified
CPT/HCPCS: 81001

== ENCOUNTER → 2022-07-07 18:08 | Outpatient (ROUT) | payer MEDICARE, MEDICAID, SELFPAY ==
[2021-11-04 23:48] VITALS: BMI 23.6
[2022-07-07 18:18] LABS: Appearance Urine UA CLEAR; Bilirubin Urine UA NEGATIVE (NEGATIVE); Color Urine UA YELLOW; Glucose Urine UA NEGATIVE (Negative); Ketones Urine UA NEGATIVE (NEGATIVE); Leukocyte Esterase Urine UA NEGATIVE (NEGATIVE); Nitrite Urine UA NEGATIVE (Negative); Occult Blood Urine UA NEGATIVE (Negative); Protein Urine UA NEGATIVE (Negative); Urobilinogen Urine UA 0.2 E.U./dL (0.2); pH Urine UA 5.5 (4.5-8.0)
[2022-07-07 19:23] LABS: RBC Urine None Seen (0-5/HPF)
[2022-07-07 19:27] LABS: Bacteria Urine Many (>30); Renal Epithelial Cells Urine 1-5/HPF (0-1/HPF); WBC Urine 1-5/HPF (0-5/HPF)
[2022-07-07 19:31] LABS: Culture Indicated Urine Cult Not Indicated
[2022-07-07 19:34] LABS: Transitional Epi Cells Urine 0-1/HPF (0-5/HPF)
== END ==
PROVIDERS: Visit Provider Nurse Practitioner Gerontology
DX: R35.0 Frequency of micturition (principal); R39.15 Urgency of urination; R32 Unspecified urinary incontinence
CPT/HCPCS: 81001

== ENCOUNTER → 2022-07-11 17:32 | Outpatient (ROUT) | payer MEDICARE, MEDICAID, SELFPAY ==
[2021-11-04 23:48] VITALS: BMI 23.6
== END ==
PROVIDERS: Visit Provider Nurse Practitioner Gerontology
DX: R60.9 Edema, unspecified (principal); R35.0 Frequency of micturition; N40.0 Benign prostatic hyperplasia without lower urinary tract symptoms
CPT/HCPCS: 84153

== ENCOUNTER 2022-07-13 23:53 | Emergency (ER) | payer MEDICARE, MEDICAID, SELFPAY ==
[2021-11-04 23:48] VITALS: BMI 23.6
[2022-07-14] VITALS (11 sets, daily range): BP systolic 97–129; BP diastolic 53–68; PULSE 59–94; RESP 14–16; TEMP 36.4; O2SAT 97–99
--- NOTE | 2022-07-14 00:13 | ED.FALL ---
HPI - Fall General Chief Complaint: Fall Stated Complaint: GLF Time Seen by Provider: 07/14/22 00:13 History of Present Illness HPI Narrative: 87-year-old gentleman currently at [facility] with progressive dementia currently DNR with a focus on comfort measures. He has a history of repeated falls. His roommate reported that he fell today this was unwitnessed. Staff report that he has been hallucinating and while standing up was hypotensive. Lying down he was doing significantly better. Patient is demented enough that he is not able to participate with history or exam. Patient had urine sent to [facility] on July 04 and . Neither sample was appropriate for culture. Related Data Home Medications Medication Instructions Recorded Confirmed acetaminophen 325 mg capsule 650 mg PO Q4H PRN Pain (Scale 01/01/18 11/04/21 (Tylenol) Score 1-3) mirtazapine 7.5 mg tablet 15 mg PO BEDTIME 01/01/18 11/04/21 artificial tears(hypromellose) 0.4 1 drp ophthalmic (eye) PRN PRN Dry 11/04/21 11/04/21 % eye drops Eyes aspirin 325 mg tablet 325 mg PO DAILY 11/04/21 11/04/21 docusate sodium 100 mg tablet 100 mg PO BID 11/04/21 11/04/21 donepezil 10 mg tablet 10 mg PO DAILY 11/04/21 11/04/21 finasteride 5 mg tablet 5 mg PO DAILY 11/04/21 11/04/21 latanoprost 0.005 % eye drops 1 drp ophthalmic (eye) DAILY 11/04/21 11/04/21 loperamide 2 mg tablet 2 mg PO TID PRN Diarrhea 11/04/21 11/04/21 magnesium hydroxide 400 mg/5 mL 1,200 mg PO BEDTIME PRN 11/04/21 11/04/21 oral suspension (Milk of Magnesia) Constipation sertraline 50 mg tablet 50 mg PO DAILY 11/04/21 11/04/21 trazodone 50 mg tablet 50 mg PO BEDTIME 11/04/21 11/04/21 Previous Rx's Medication Instructions Recorded acetaminophen 325 mg tablet 650 mg PO Q6HR PRN Fever/Mild Pain 11/07/21 (1-3) #30 tabs lorazepam 2 mg/mL oral concentrate 0.5 mg (0.25 mL) PO Q4HR PRN 11/07/21 (Lorazepam Intensol) Anxiety #15 mL propranolol 10 mg tablet 20 mg PO TID #90 tabs 11/07/21 sulfamethoxazole 800 1 tab PO BID #10 tabs 11/07/21 mg-trimethoprim 160 mg tablet Allergies Allergy/AdvReac Type Severity Reaction Status Date / Time No Known Drug Allergies Allergy Verified 02/01/22 10:39 Review of Systems Review of Systems ROS Unobtainable: Unobtainable due to mental status/LOC Patient History Medical History (Updated 07/15/22 @ 03:53 by Ledy Kennedy MD) Dementia Dyslipidemia Hypertension Insomnia Orthostatic hypotension Social History household members: caregiver Smoking Status: Former smoker Smoking Status: Former smoker alcohol intake frequency: other Alcohol type: beer Substance Use Type: does not use Exam Initial Vital Signs Initial Vital Signs: Vital Signs Temperature 97.6 F 07/14/22 00:05 Pulse Rate 66 07/14/22 00:05 Respiratory Rate 14 07/14/22 00:05 Blood Pressure 115/59 L 07/14/22 00:05 Pulse Oximetry 98 07/14/22 00:05 Oxygen Delivery Method Room Air 07/14/22 00:05 General: Somewhat frail-appearing but in no acute distress. HEENT: Moist mucous membranes, normal sclera with reactive pupils, Respiratory: Lungs are clear to auscultation, no wheezing no rales no rhonchi. Full and symmetrical air movement Cardiac: Regular rate and rhythm no murmurs no bruits Abdomen: Soft, no pain behaviors elicited with deep palpation in all quadrants. No obvious flank tenderness. Skin: Pale but otherwise Warm and dry, no rashes Neurologic: Not oriented to person time or place, nonsensical answers to questions. No pain behaviors appreciated Extremities: No trauma, well perfused Psych: Cooperative, appropriate insight and affect Course Vital Signs Vital signs: Vital Signs - 8 hr 07/14/22 00:05 Temperature 97.6 F Pulse Rate 66 Respiratory Rate 14 Blood Pressure 115/59 L Pulse Oximetry 98 Oxygen Delivery Method Room Air MDM - Fall MDM Narrative Medical decision making narrative: CC: Falls, orthostasis this is an acute exacerbation of a chronic problem with uncertain diagnosis Complicating co-morbidities: Significant dementia with goals of care focused on comfort Data collected from: patient, Social determinants of health that may influence the patients condition: Dementia Medical records reviewed: Recent urine sample sent to [facility] are reviewed. Summary report from [facility] is reviewed Differential considered: Dehydration with orthostasis, sepsis, general chronic decline secondary to advancing dementia Exam documented above, pertinent findings include: Orthostasis without obvious signs of infection Lab Test results from recent urinary samples reviewed and there was no evidence of acute urinary tract infection Discussion: Attempts were made to call his niece who is listed as his primary contact. I was unable to get a hold of her. In light of his advancing dementia and goals set for comfort I opted to not do significant investigation at this time. There is no clinical evidence of significant infection. He is moderately orthostatic and a L of fluid is administered. At this point we will plan on transferring back to [facility]. I am happy to re-evaluate if more extensive medical workup is requested. At this point he seems quite comfortable and appropriate to transfer to [facility] Discharge Plan Departure Patient Disposition: Home Clinical Impression: Falls frequently, Dementia, Orthostatic hypotension Activity Restrictions/Additional Instructions: In the emergency department Street her head complete exam. I did not find any obvious injury from his falls. He remains significantly confused and was not able to contribute any additional history. There are no obvious pain behaviors elicited on physical exam. Was moderately orthostatic and a L of fluid was given. POLST form was reviewed and given his focus on comfort, I opted not to do extensive workup today. There was no blood work and no imaging performed. I did review urine results from July 04 and July 07 neither of which or cultured and there was no suggestion of urinary tract infection. I did try to contact his primary contact, Jodee María. She was unavailable at 1 in the morning. If you would like more thorough lab or imaging studies done I am happy to re-evaluate this gentleman at this point he seems close to his baseline and safe to return to [facility]. Prescriptions: No Action mirtazapine 7.5 mg Tablet 15 mg PO BEDTIME acetaminophen [Tylenol] 325 mg Capsule 650 mg PO Q4H PRN (Reason: Pain (Scale Score 1-3)) latanoprost 0.005 % Drops 1 drp OPHTHALMIC (EYE) DAILY trazodone 50 mg Tablet 50 mg PO BEDTIME aspirin 325 mg Tablet 325 mg PO DAILY donepezil 10 mg Tablet 10 mg PO DAILY loperamide 2 mg Tablet 2 mg PO TID PRN (Reason: Diarrhea) Rx Instructions: administer after each loose stool until symptoms controlled; do not exceed 8 mg per 24 hrs magnesium hydroxide [Milk of Magnesia] 400 mg/5 mL Suspension 1,200 mg PO BEDTIME PRN (Reason: Constipation) artificial tears(hypromellose) 0.4 % Drops 1 drp OPHTHALMIC (EYE) PRN PRN (Reason: Dry Eyes) sertraline 50 mg Tablet 50 mg PO DAILY docusate sodium 100 mg Tablet 100 mg PO BID finasteride 5 mg Tablet 5 mg PO DAILY acetaminophen 325 mg Tablet 650 mg PO Q6HR PRN (Reason: Fever/Mild Pain (1-3)) Qty: 30 0RF sulfamethoxazole-trimethoprim 800-160 mg Tablet 1 tab PO BID Qty: 10 0RF propranolol 10 mg Tablet 20 mg PO TID Qty: 90 0RF lorazepam [Lorazepam Intensol] 2 mg/mL Concentrate 0.5 mg PO Q4HR PRN (Reason: Anxiety) Qty: 15 0RF Referrals: Miscellaneous,Doctor, MD [Primary Care Provider] - Stand Alone Forms: Patient Portal/API
== END 2022-07-14 04:17 | disposition home or self-care (01) ==
PROVIDERS: Emergency Provider Emergency Medicine
DX: I95.1 Orthostatic hypotension (principal); R29.6 Repeated falls; F03.90 Unspecified dementia, unspecified severity, without behavioral disturbance, psychotic disturbance, mood disturbance, and anxiety
CPT/HCPCS: 99281

== ENCOUNTER 2022-07-15 00:45 | Emergency (ER) | payer MEDICARE, MEDICAID, SELFPAY ==
[2021-11-04 23:48] VITALS: BMI 23.6
[2022-07-15 00:54] VITALS: BP 117/77; PULSE 115; RESP 18; TEMP 36.3; O2SAT 98
[2022-07-15 01:26] VITALS: PULSE 113; O2SAT 96
[2022-07-15 01:30] VITALS: PULSE 113; O2SAT 96
[2022-07-15 01:36] LABS: Alanine Aminotransferase 19 IU/L (<50); Albumin 3.9 g/dL (3.5-5.0); Albumin Globulin Ratio 1.3 (1.0-2.8); Alkaline Phosphatase 72 U/L (38-126); Aspartate Aminotransferase 20 IU/L (17-59); BUN Creatinine Ratio 24.8 (6-22); Bilirubin Total 0.5 mg/dL (0.2-1.3); Blood Urea Nitrogen 31 mg/dL (9-20); Calcium 8.4 mg/dL (8.4-10.2); Carbon Dioxide 27 mmol/L (22-32); Chloride 106 mmol/L (98-107); Estimated Glomerular Filt Rate 55 mL/min (>60); Globulin 2.9 g/dL (1.7-4.1); Glucose 113 mg/dL (80-110); HEMOLYSIS < 15 (0-50); Potassium 4.4 mmol/L (3.4-5.1); Sodium 138 mmol/L (137-145); Total Protein 6.8 g/dL (6.3-8.2)
[2022-07-15 01:41] LABS: Hematocrit 36.4 % (41-53); Hemoglobin 12.5 g/dL (13.5-17.5); Lymphocytes Percent Auto 17.2 % (25-40); Mean Corpuscular HGB Conc 34.3 % (30-36); Mean Corpuscular Hemoglobin 31.9 PG (26-34); Mean Corpuscular Volume 92.8 fL (80-100); Neutrophils Percent Auto 64.9 % (50-75); Platelet Count 239 X10^3/uL (150-400); Red Blood Cell Count 3.92 X10^6/uL (4.5-5.9); Red Cell Distribution Width 14.5 % (11.6-14.8); White Blood Cell Count 6.4 X10^3/uL (4.5-11.0)
[2022-07-15 01:42] LABS: Add Manual Diff / Slide Review NO; Eosinophils Percent Auto 4.3 % (2-4); Monocytes Percent Auto 12.6 % (3-14); Neutrophils Absolute Auto 4200 /uL (1500-7000)
[2022-07-15 01:43] LABS: Basophils Absolute Auto 100 /uL (0-100); Eosinophils Absolute Auto 300 /uL (0-450); Lymphocytes Absolute Auto 1100 /uL (1100-4500); Monocytes Absolute Auto 800 /uL (0-900)
[2022-07-15 02:00] VITALS: PULSE 116; O2SAT 97
[2022-07-15 02:03] VITALS: PULSE 117; O2SAT 97
[2022-07-15 02:05] LABS: Bacteria Urine Many (>30); RBC Urine 1-5/HPF (0-5/HPF); WBC Urine 10-30/HPF (0-5/HPF)
[2022-07-15 02:25] VITALS: BP 124/83
--- NOTE | 2022-07-15 03:23 | ED.FALL ---
HPI - Fall General Chief Complaint: Fall Stated Complaint: GLF Time Seen by Provider: 07/15/22 01:00 Source: EMS Mode of arrival: EMS History of Present Illness HPI Narrative: 87-year-old gentleman with dementia with a pulsed form that indicates DNR, comfort measures consideration of antibiotics who has recurrent falls witnessed by his roommate but not by staff. He was in the emergency department last night. Is demented enough that he is unable to participate in any history at all. He has no specific complaints and is somewhat disgruntled as he is in the emergency department again. Related Data Home Medications Medication Instructions Recorded Confirmed acetaminophen 325 mg capsule 650 mg PO Q4H PRN Pain (Scale 01/01/18 11/04/21 (Tylenol) Score 1-3) mirtazapine 7.5 mg tablet 15 mg PO BEDTIME 01/01/18 11/04/21 artificial tears(hypromellose) 0.4 1 drp ophthalmic (eye) PRN PRN Dry 11/04/21 11/04/21 % eye drops Eyes aspirin 325 mg tablet 325 mg PO DAILY 11/04/21 11/04/21 docusate sodium 100 mg tablet 100 mg PO BID 11/04/21 11/04/21 donepezil 10 mg tablet 10 mg PO DAILY 11/04/21 11/04/21 finasteride 5 mg tablet 5 mg PO DAILY 11/04/21 11/04/21 latanoprost 0.005 % eye drops 1 drp ophthalmic (eye) DAILY 11/04/21 11/04/21 loperamide 2 mg tablet 2 mg PO TID PRN Diarrhea 11/04/21 11/04/21 magnesium hydroxide 400 mg/5 mL 1,200 mg PO BEDTIME PRN 11/04/21 11/04/21 oral suspension (Milk of Magnesia) Constipation sertraline 50 mg tablet 50 mg PO DAILY 11/04/21 11/04/21 trazodone 50 mg tablet 50 mg PO BEDTIME 11/04/21 11/04/21 Previous Rx's Medication Instructions Recorded acetaminophen 325 mg tablet 650 mg PO Q6HR PRN Fever/Mild Pain 11/07/21 (1-3) #30 tabs lorazepam 2 mg/mL oral concentrate 0.5 mg (0.25 mL) PO Q4HR PRN 11/07/21 (Lorazepam Intensol) Anxiety #15 mL propranolol 10 mg tablet 20 mg PO TID #90 tabs 11/07/21 sulfamethoxazole 800 1 tab PO BID #10 tabs 11/07/21 mg-trimethoprim 160 mg tablet Allergies Allergy/AdvReac Type Severity Reaction Status Date / Time No Known Drug Allergies Allergy Verified 02/01/22 10:39 Review of Systems Review of Systems ROS Unobtainable: Unobtainable due to mental condition Patient History Medical History (Updated 07/15/22 @ 03:53 by Ledy Kennedy MD) Dementia Dyslipidemia Hypertension Insomnia Orthostatic hypotension Social History household members: caregiver Smoking Status: Former smoker Smoking Status: Former smoker alcohol intake frequency: other Alcohol type: beer Substance Use Type: does not use Exam Initial Vital Signs Initial Vital Signs: Vital Signs Temperature 97.4 F L 07/15/22 00:54 Pulse Rate 115 H 07/15/22 00:54 Respiratory Rate 18 07/15/22 00:54 Blood Pressure 117/77 07/15/22 00:54 Pulse Oximetry 98 07/15/22 00:54 Oxygen Delivery Method Room Air 07/15/22 00:54 General: Older-appearing but in no acute distress. Pleasantly demented. HEENT: Moist mucous membranes, normal sclera with reactive pupils, no bruises or contusions to his head Neck: no cervical spine tenderness, supple Respiratory: Lungs are clear to auscultation, no wheezing no rales no rhonchi. Full and symmetrical air movement Cardiac: Regular rate and rhythm no murmurs no bruits Abdomen: Soft, nontender, good bowel tones, no flank pain Skin: Pale but otherwise Warm and dry Neurologic: Moving all extremities with cognitive deficit appreciated Extremities: No significant trauma, well perfused Course Orders Ordered: ED Orders 07/15/22 00:46 Complete Blood Count AUTO DIFF Stat Comprehensive Metabolic Panel Stat 07/15/22 01:22 Urine Culture Stat Urine Microscopic Stat Vital Signs Vital signs: Vital Signs - 8 hr 07/15/22 00:54 07/15/22 01:26 07/15/22 01:30 Temperature 97.4 F L Pulse Rate 115 H 113 H 113 H Respiratory Rate 18 Blood Pressure 117/77 Pulse Oximetry 98 96 96 Oxygen Delivery Method Room Air 07/15/22 02:00 07/15/22 02:03 07/15/22 02:25 Temperature Pulse Rate 116 H 117 H Respiratory Rate Blood Pressure 124/83 Pulse Oximetry 97 97 Oxygen Delivery Method MDM - Fall Lab Data 07/15/22 00:46 07/15/22 00:46 Labs: Lab Results 07/15/22 07/15/22 07/15/22 Range/Units 00:46 00:46 01:22 WBC 6.4 (4.5-11.0) X10^3/uL RBC 3.92 L (4.5-5.9) X10^6/uL Hgb 12.5 L (13.5-17.5) g/dL Hct 36.4 L (41-53) % MCV 92.8 (80-100) fL MCH 31.9 (26-34) PG MCHC 34.3 (30-36) % RDW 14.5 (11.6-14.8) % Plt Count 239 (150-400) X10^3/uL Neut % (Auto) 64.9 (50-75) % Lymph % (Auto) 17.2 L (25-40) % Arthur % (Auto) 12.6 (3-14) % Eos % (Auto) 4.3 H (2-4) % Baso % (Auto) 1.0 (0-2) % Neut # (Auto) 4200 (1599-0668) /uL Lymph # (Auto) 1100 (2786-2513) /uL Arthur # (Auto) 800 (0-900) /uL Eos # (Auto) 300 (0-450) /uL Baso # (Auto) 100 (0-100) /uL Sodium 138 (137-145) mmol/L Potassium 4.4 (3.4-5.1) mmol/L Chloride 106 (98-107) mmol/L Carbon Dioxide 27 (22-32) mmol/L BUN 31 H (9-20) mg/dL Creatinine 1.25 (0.66-1.25) mg/dL Estimated GFR 55 L (>60) mL/min BUN/Creatinine Ratio 24.8 H (6-22) Glucose 113 H (80-110) mg/dL Calcium 8.4 (8.4-10.2) mg/dL Total Bilirubin 0.5 (0.2-1.3) mg/dL AST 20 (17-59) IU/L ALT 19 (<50) IU/L Alkaline Phosphatase 72 (38-126) U/L Total Protein 6.8 (6.3-8.2) g/dL Albumin 3.9 (3.5-5.0) g/dL Globulin 2.9 (1.7-4.1) g/dL Albumin/Globulin Ratio 1.3 (1.0-2.8) Urine RBC 1-5/hpf (0-5/HPF) Urine WBC 10-30/hpf H (0-5/HPF) Urine Bacteria Many (>30) H (None) Urine Dip Bedside Urine Glucose Negative Bedside Urine Bilirubin - Negative Bedside Urine Ketone - Negative Urine Specific [place] 1.015 Bedside Urine Occult Blood + Bedside Urine pH 6 Bedside Urine Protein +/- 15 Bedside Urine Urobilinogen - Negative Bedside Urine Nitrite - Negative Bedside Urine Leukocytes ++ 125 Esterase MDM Narrative Medical decision making narrative: CC: Unwitnessed fall in residential facility Complicating co-morbidities: Dementia, DNR with focus on comfort, orthostatic hypotension continues on propranolol 20 mg b.i.d. Data collected from: [facility], [facility], [facility] from [facility] Social determinants of health that may influence the patients condition: Dementia, current living situation Medical records reviewed: Recent medical records reviewed. Recent micro from urine tests are reviewed. Continues to have urinalysis sample sent with concerns for bladder infection. 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 Differential considered: Progressive dementia, gait instability, orthostatic hypotension, Exam documented above, pertinent findings include: Patient is pleasantly demented there is no obvious trauma Lincoln catheter is in place Lab Test results independently reviewed as above. Pertinent findings: Urinalysis looks like it was collected from a Lincoln catheter does not look infected will wait for culture today, again cultures have been positive only for staph epidermidis which is not the urinary tract pathogen that will cause symptoms or infection in the setting of a Lincoln catheter. White blood cell count is normal, H and H are similar to yesterday Chemistries are unremarkable Discussion: Pleasant demented gentleman with recurrent visits to the emergency department after his roommate witnesses falls. Patient does not have any obvious trauma. He does have a POLST form that indicates he is no code and comfort measures are indicated with consideration of antibiotics when indicated. This means that if he falls and does have any type of head injury we will keep him quite comfortable and not intervene. This also means that if we are not going to treat any findings we are not going to do head scans if he hits his head with a fall. Needs to have care plans reviewed with medical staff as well as his [id number] to clarify when to transfer this gentleman to the emergency department and when advanced imaging is needed-based on his pulse form and comfort care I would argue that advanced imaging is never going to be needed. Regarding recurrent concerns for urinary tract infection. He has a Lincoln catheter in place. This is adequate treatment for bacteria to flush out of the bladder this bladder infection is far less likely. In looking back through urine cultures all the way to 2018 has occasionally grown out staph epidermidis which is a colonized bacteria and not a bladder infection. He has no documentation of bladder infections with the multiple urine cultures that have been done. He does seem to have orthostatic hypotension. Staff and medics note that after a fall his blood pressure is low when she is up and moving around it comes back up. To that end, and consistent with his focus on comfort care, I am going to suggest that we completely discontinue his propranolol as it may be contributing to his orthostatic hypotension and falling. I again tried to contact his niece and was unable to get through on her phone. I would request that his residential provider review goals of care and be very clear on when patient does need to be transferred to the emergency department. At this point I think we are simply annoying him and disrupting his sleep with the emergency department visits. At this time he is safe for discharge home. Discharge Plan Departure Patient Disposition: Home Clinical Impression: Falls frequently, Orthostatic hypotension, Chronic indwelling Lincoln catheter Dementia Qualifiers: Dementia type: unspecified type Activity Restrictions/Additional Instructions: Pleasant demented gentleman with recurrent visits to the emergency department after his roommate witnesses falls. Patient does not have any obvious trauma. He does have a POLST form that indicates he is no code and comfort measures are indicated with consideration of antibiotics when indicated. This means that if he falls and does have any type of head injury we will keep him quite comfortable and not intervene. This also means that if we are not going to treat any findings, we are not going to do head scans if he hits his head with a fall. This gentleman needs to have care plans reviewed with medical staff as well as his [id number] to clarify when to transfer him to the emergency department and when advanced imaging is needed-based on his pulse form and comfort care I would argue that advanced imaging is never going to be needed. Regarding recurrent concerns for urinary tract infection. He has a Lincoln catheter in place. This is adequate treatment for bacteria to flush out of the bladder, thus bladder infection is far less likely. In looking back through urine cultures all the way to 2018, he has occasionally grown out staph epidermidis which is a colonized bacteria and not a bladder infection. He has no documentation of bladder infections with the multiple urine cultures that have been done. CBC and chemistry panels done today indicate no acute abnormalities, infection, renal function or electrolyte disturbance. He does seem to have orthostatic hypotension. Staff and medics note that after a fall, his blood pressure is low. Once he is up and moving around it comes back up. To that end, and consistent with his focus on comfort care, I am going to suggest that we completely discontinue his propranolol as it may be contributing to his orthostatic hypotension and falling. Another suggestion in reviewing his medications, given the fact that he has a chronic indwelling Lincoln catheter that will likely stay in for the remainder of his life, the tamsulosin is likely no longer necessary and again may be contributing to his orthostatic hypotension. I would recommend discontinuing this as well I again tried to contact his niece and was unable to get through on her phone. I would request that his residential care provider review goals of care and be very clear on when patient does need to be transferred to the emergency department. At this point I think we are simply annoying him and disrupting his sleep with the emergency department visits. He is safe for discharge home Prescriptions: No Action mirtazapine 7.5 mg Tablet 15 mg PO BEDTIME acetaminophen [Tylenol] 325 mg Capsule 650 mg PO Q4H PRN (Reason: Pain (Scale Score 1-3)) latanoprost 0.005 % Drops 1 drp OPHTHALMIC (EYE) DAILY trazodone 50 mg Tablet 50 mg PO BEDTIME aspirin 325 mg Tablet 325 mg PO DAILY donepezil 10 mg Tablet 10 mg PO DAILY loperamide 2 mg Tablet 2 mg PO TID PRN (Reason: Diarrhea) Rx Instructions: administer after each loose stool until symptoms controlled; do not exceed 8 mg per 24 hrs magnesium hydroxide [Milk of Magnesia] 400 mg/5 mL Suspension 1,200 mg PO BEDTIME PRN (Reason: Constipation) artificial tears(hypromellose) 0.4 % Drops 1 drp OPHTHALMIC (EYE) PRN PRN (Reason: Dry Eyes) sertraline 50 mg Tablet 50 mg PO DAILY docusate sodium 100 mg Tablet 100 mg PO BID finasteride 5 mg Tablet 5 mg PO DAILY acetaminophen 325 mg Tablet 650 mg PO Q6HR PRN (Reason: Fever/Mild Pain (1-3)) Qty: 30 0RF sulfamethoxazole-trimethoprim 800-160 mg Tablet 1 tab PO BID Qty: 10 0RF propranolol 10 mg Tablet 20 mg PO TID Qty: 90 0RF lorazepam [Lorazepam Intensol] 2 mg/mL Concentrate 0.5 mg PO Q4HR PRN (Reason: Anxiety) Qty: 15 0RF Referrals: Miscellaneous,Doctor, MD [Primary Care Provider] - Stand Alone Forms: Patient Portal/API
--- NOTE | 2022-07-15 06:20 | PC.NURSE ---
PT noted with blood in catheter tubing, urine in drainage bag yellow, Pt appears to have been pulling on catheter tubing. ensured catheter is still draining. Provider aware and no new orders.
== END 2022-07-15 06:27 | disposition home or self-care (01) ==
PROVIDERS: Emergency Provider Emergency Medicine
DX: F03.90 Unspecified dementia, unspecified severity, without behavioral disturbance, psychotic disturbance, mood disturbance, and anxiety (principal); R29.6 Repeated falls; I95.1 Orthostatic hypotension
CPT/HCPCS: 80053; 81003; 81015; 85025; 87077; 87086; 87186; 99282; 99283

== ENCOUNTER → 2022-07-16 07:47 | Outpatient (ROUT) | payer MEDICARE, MEDICAID, SELFPAY ==
[2021-11-04 23:48] VITALS: BMI 23.6
[2022-07-16 10:14] LABS: HEMOLYSIS < 15 (0-50)
[2022-07-16 10:22] LABS: BUN Creatinine Ratio 23.6 (6-22); Blood Urea Nitrogen 35 mg/dL (9-20); Calcium 8.2 mg/dL (8.4-10.2); Carbon Dioxide 26 mmol/L (22-32); Chloride 104 mmol/L (98-107); Estimated Glomerular Filt Rate 45 mL/min (>60); Glucose 87 mg/dL (80-110); Potassium 3.9 mmol/L (3.4-5.1); Sodium 137 mmol/L (137-145)
[2022-07-16 15:46] LABS: Prostate Specific Antigen 2.27 ng/mL (0.10-4.00)
== END ==
PROVIDERS: Visit Provider Nurse Practitioner Gerontology
DX: N18.9 Chronic kidney disease, unspecified (principal); R33.9 Retention of urine, unspecified
CPT/HCPCS: 36415; 80048; 84153